=== PATIENT | female | born 1950 | race Caucasian/White ===

== ENCOUNTER 2017-01-11 06:02 | Day surgery (SDC) | payer MEDICARE, BC ==
[2016-12-28 11:41] LABS: HEMATOCRIT 41.4 % (36.0-47.0); HEMOGLOBIN 14.1 g/dL (12.0-15.5); HGB HCT DIFFERENCE 0.9; MEAN CORPUSCULAR HEMOGLOBIN 29.3 pg (27.0-33.4); MEAN CORPUSCULAR HGB CONC 34.1 g/dL (32.0-36.0); MEAN CORPUSCULAR VOLUME 86 fl (80-97); RED BLOOD COUNT 4.83 10^6/uL (3.72-5.28); RED CELL DISTRIBUTION WIDTH 13.6 % (11.5-14.0); WHITE BLOOD COUNT 7.5 10^3/uL (4.0-10.5)
[2016-12-28 11:43] LABS: PARTIAL THROMBOPLASTIN TIME 24.9 SEC (23.5-35.8)
[2016-12-28 11:57] LABS: ANION GAP 13 (5-19); BLOOD UREA NITROGEN 17 mg/dL (7-20); CALCIUM 9.7 mg/dL (8.4-10.2); CARBON DIOXIDE 28 mmol/L (22-30); CHLORIDE 101 mmol/L (98-107); CREATININE RESULT 0.64 mg/dL (0.52-1.25); GLUCOSE 100 mg/dL (75-110); POTASSIUM 3.9 mmol/L (3.6-5.0); SODIUM 141.7 mmol/L (137-145)
--- NOTE | 2016-12-28 13:26 | EKG REPORT ---
SEVERITY:- BORDERLINE ECG - SINUS RHYTHM ATRIAL PREMATURE COMPLEX BORDERLINE LEFT AXIS DEVIATION LOW VOLTAGE THROUGHOUT : Confirmed by: Carmelina Jesus MD 28-Dec-2016 13:25:26
[~2017-01-11 06:02] MED LIST: CEFAZOLIN 1 GM/D5W RTU 1 GM/50 ML RTUPB IV PRN; LACTATED RINGERS 1000 ML IV PRN; LIDOCAINE 0.5% INJ-PF (5 MG/ML) 50 ML SDV SUBCUT PRN
[2017-01-11] MEDS ORDERED: SODIUM BICARBONATE 8.4% INJ 50 MEQ/50 ML DISP.SYRIN ONE (06:54)
[2017-01-11] MEDS ORDERED: POVIDONE-IODINE 5% OPH PREP SOLN 30 ML ONE (06:54)
[2017-01-11] MEDS ORDERED: LIDOCAINE 1%/EPINEPHRINE INJ 20 ML VIAL ONE (06:54)
[2017-01-11] MEDS ORDERED: FENTANYL CITRATE INJ/PF 100 MCG/2 ML AMPUL ONE (07:24)
[2017-01-11] MEDS ORDERED: KETAMINE HCL INJ 500 MG/10 ML VIAL ONE (07:24)
[2017-01-11] MEDS ORDERED: DEXMEDETOMIDINE INJ 80 MCG/20 ML VIAL IV ONE (07:25)
[2017-01-11] MEDS ORDERED: PROPOFOL INJ 200 MG/20 ML VIAL IV ONE ×2 (07:25→07:26)
[2017-01-11] MEDS ORDERED: MIDAZOLAM 2 MG/2 ML INJ ONE (07:25)
[2017-01-11] MEDS ORDERED: ACETAMINOPHEN 100 ML IV ONE (07:25)
[2017-01-11] MEDS ORDERED: EPHEDRINE SULFATE INJ 50 MG/1 ML AMPULE ONE (07:25)
[2017-01-11] MEDS ORDERED: ONDANSETRON HCL INJ/PF 4 MG/2 ML SDV IV PRN (09:05)
[2017-01-11] MEDS ORDERED: FENTANYL CITRATE INJ/PF 100 MCG/2 ML AMPUL IV PRN ×3 (09:05)
[2017-01-11] MEDS ORDERED: PROMETHAZINE HCL INJ 25 MG/1 ML VIAL IV PRN ×2 (09:05)
[2017-01-11] MEDS ORDERED: MEPERIDINE HCL/PF INJ 25 MG/1 ML DISP.SYRIN IV PRN (09:05)
[2017-01-11] MEDS ORDERED: MORPHINE SULFATE 10 MG/ML INJ IV PRN (09:05)
[2017-01-11] MEDS ORDERED: DIPHENHYDRAMINE HCL 50 MG/ML VIAL IV PRN (09:05)
--- NOTE | 2017-01-11 10:15 | Operative Report ---
Operative Report DATE OF SURGERY: 01/11/17 PREOPERATIVE DIAGNOSIS: Basal squamous carcinoma of the right ear POSTOPERATIVE DIAGNOSIS: Same OPERATION: Excision of basal squamous carcinoma of the right ear with frozen section margin control and reconstruction with a posterior helical rim sliding advancement flap and a split thickness skin graft from the right clavicular area SURGEON: NICHOLAS ALDANA ANESTHESIA: LMAC TISSUE REMOVED OR ALTERED: Basal squamous carcinoma of the right ear COMPLICATIONS: None ESTIMATED BLOOD LOSS: minimal PROCEDURE: The patient was brought into the operating room. The patient was laid on the operating room table in a supine position. The patient was prepped and draped in a sterile and aseptic fashion. After a timeout we then went ahead and marked the area on the right ear to be resected. The 12:00 margin was towards the tragus. The 3:00 margin was towards the earlobe. The 6:00 margin was towards the posterior. The 9:00 margin was towards the apex of the year. Then went ahead and anesthetize the area with 1% lidocaine with epinephrine. Then went ahead and excise the area. Stitch was placed at 12:00 and it was sent for frozen section. Frozen section results came back that the deep and lateral margins were clear. We irrigated the wound with Betadine sterile water to lyse any remaining cancer cells. We then went ahead and decided that because of the size of the defect we will proceed with a skin graft. After the resection a portion of cartilage on the helical rim was exposed. This would not accept a graft. Also the graft would not be able to make the curve of the helical rim. In order to cover the exposed cartilage we developed a post auricular sliding advancement flap. I maintained the subdermal plexus and slid and advanced the flap around the helical rim and anchored it to the base of the inner helical rim with 5.0 horizontal mattress Prolene sutures. This fall with the flap and re-created coverage over the exposed helical rim cartilage and left the area to be grafted at the base of the scaphe We then proceeded to reconstruct the defect remaining on the upper part of the ear with a split-thickness skin graft. Decided to harvest the graft from the right clavicular area. We then went ahead and harvest the split-thickness graft. We closed the area with 4-0 Vicryl sutures and the skin was then closed with 4- 0 PDS with knots being tied on the outside and a support stitch in the center. At the end of the case tincture of benzoin and Steri-Strips were applied with a light pressure dressing. Graft was then defatted to the appropriate size and placed into the area of defect. It was then sutured into place with 5-0 Prolene sutures leaving one end long. After all the sutures were placed we then went ahead and applied Xeroform. Then went ahead and created a bolus dressing and tied each suture 180 from each other. Then tied the sutures again to each other. Bacitracin was applied. 2 x 2's were applied and tincture benzoin and the dressing was taped into place. At the end of the case the patient was doing well and brought to the [facility] for recovery The approximate size of the lesion was approximately 1.1 x 1.1 cm. This dictation was performed using [employer] naturally speaking. If there are any inconsistencies please contact the dictating surgeon. Subjective: No complaints Objective: Vital signs stable afebrile No bleeding Dressing intact Assessment and plan: Doing well. Elevate the operative site. Resume medications. Take antibiotics for 1 day Follow-up Full instructions were given to the patient and family and they understand Portions of this note may be dictated using [employer] voice recognition software. Occasional variations and spelling and vocabulary could be possible and are unintentional. Additionally, there is a chance that some errors may not be caught or corrected. Please notify the offer of any discrepancies noted or if any statements are unclear.
--- NOTE | 2017-01-11 10:18 | PDOC DISCHARGE SUMMARY ---
Discharge Summary (SDC) - Discharge Final Diagnosis: Basal squamous carcinoma of the right ear Date of Surgery: 01/11/17 Condition: Good Treatment or Instructions: Antibiotics for 1 day, then discontinue. Elevate operative area to decrease swelling. Do not strain, or lift heavy objects. Call for excessive bleeding, increased temperature of 101, uncontrolled pain, or excessive nausea or vomiting. You may reach Dr. Wong through his office at [phone]. In the event of an emergency after hours, then contact Dr. Wong through [facility]. Return to the office for a postop check on . The time will be scheduled by the nursing staff of [facility] prior to discharge. Please give the patient a copy of their labs and EKG so they can bring this to their PMD. Thank you Portions of this note may be dictated using [employer] voice recognition software. Occasional variations and spelling and vocabulary could be possible and are unintentional. Additionally, there is a chance that some errors may not be caught or corrected. Please notify the offer of any discrepancies noted or if any statements are unclear. Discharge Diet: As Tolerated Discharge Activity: Activity As Tolerated - Discharged to home
[2017-01-11 11:55] VITALS: BP 104/65
[2017-01-11] MEDS ORDERED: METOCLOPRAMIDE HCL INJ/PF 10 MG/2 ML SDV ONE (14:52)
[2017-01-11] MEDS ORDERED: PHENYLEPHRINE HCL INJ/PF 10 MG/1 ML SDV ONE (14:52)
[2017-01-11] MEDS ORDERED: LIDOCAINE 2% INJ-PF (20 MG/ML) 10 ML AMPUL ONE (14:52)
[2017-01-11] MEDS ORDERED: ONDANSETRON HCL INJ/PF 4 MG/2 ML SDV ONE (14:52)
[2017-01-11] MEDS ORDERED: GLYCOPYRROLATE INJ 0.4 MG/2 ML VIAL ONE (14:52)
== END 2017-01-11 11:40 | disposition home or self-care (01) ==
LOC: OROUT 06:02
PROVIDERS: ATTEND Plastic Surgery
PROC: 0HR2X74 Replacement of Right Ear Skin with Autologous Tissue Substitute, Partial Thickness, External Approach (ICD-10-PCS; principal; 2017-01-11 08:00)
DX: C44.212 Basal cell carcinoma of skin of right ear and external auricular canal (principal); C44.222 Squamous cell carcinoma of skin of right ear and external auricular canal; I10 Essential (primary) hypertension; K21.9 Gastro-esophageal reflux disease without esophagitis; E11.9 Type 2 diabetes mellitus without complications; Z79.01 Long term (current) use of anticoagulants; Z88.5 Allergy status to narcotic agent; Z79.82 Long term (current) use of aspirin; Z79.899 Other long term (current) drug therapy; Z79.1 Long term (current) use of non-steroidal anti-inflammatories (NSAID); Z79.84 Long term (current) use of oral hypoglycemic drugs
CPT/HCPCS: 93005; 36415 ×2; 82962; 84132; 85027; 85610; 85730; 80048; 88305 ×2; 88331 ×2; 93010; 11642; 15120; J2250; J0690; J3010; J3490 ×6; J2765; J2370; J2405; J2704; J0131; 300

== ENCOUNTER 2017-05-29 22:28 | Emergency (ER) | payer MEDICARE, BC ==
[2017-05-30] MEDS ORDERED: NORMAL SALINE 1000 ML 1,000 ML IV PRN (00:22)
[2017-05-30] MEDS ORDERED: DIPHENHYDRAMINE HCL 50 MG/ML VIAL IV ONE (00:22)
[2017-05-30] MEDS ORDERED: METOCLOPRAMIDE HCL INJ/PF 10 MG/2 ML SDV IV ONE (00:22)
--- NOTE | 2017-05-30 00:23 | ER Document Report ---
ED Headache - General Chief Complaint: Headache <24 hrs old Stated Complaint: BODY PAIN Time Seen by Provider: 05/30/17 00:17 Mode of Arrival: Ambulatory Information source: Patient TRAVEL OUTSIDE OF THE [place] IN LAST 30 DAYS: No - HPI Patient complains to provider of: Headache Onset: This evening Onset was: Abrupt Timing: Still present Quality of pain: Achy Severity: Moderate Pain Level: 4 Associated symptoms: Nausea/vomiting Exacerbated by: Light, Noise Notes: Patient is a 66-year-old female presenting to the emergency room today complaining of headache that started around 830 this evening, started behind the right eye and radiates to the ear in the back of the head, she reports a history of migraines as a child but she states she grew out of them and has not had any symptoms, she reports nausea and dry heaving vomiting, denies a fever, no head injury, she reports an elevated blood pressure at home which is not typical for her - Related Data Allergies/Adverse Reactions: adhesive Allergy (Intermediate, Verified 05/29/17 22:57) Blisters latex [Latex] Allergy (Mild, Verified 05/29/17 22:57) rash acetaminophen [From Vicodin] Adverse Reaction (Intermediate, Verified 05/29/17 22:57) Hallucinations hydrocodone bitartrate [From Vicodin] Adverse Reaction (Intermediate, Verified 05/29/17 22:57) Hallucinations oxycodone HCl [From Percocet] Adverse Reaction (Intermediate, Verified 05/29/17 22:57) Hallucinations Past Medical History - General Information source: Patient - Social History Smoking Status: Never Smoker Family History: Reviewed & Not Pertinent Patient has suicidal ideation: No Patient has homicidal ideation: No - Past Medical History Cardiac Medical History: Denies: Hx Coronary Artery Disease, Hx Heart Attack, Hx Hypertension Pulmonary Medical History: Denies: Hx Asthma, Hx Bronchitis, Hx COPD, Hx Pneumonia Neurological Medical History: Denies: Hx Cerebrovascular Accident, Hx Seizures Renal/ Medical History: Reports: Hx Kidney Stones. Denies: Hx Peritoneal Dialysis Malignancy Medical History: Reports: Hx Skin Cancer Musculoskeltal Medical History: Denies Hx Arthritis Past Surgical History: Reports: Hx Appendectomy, Hx Cholecystectomy, Hx Tonsillectomy. Denies: Hx Pacemaker - Immunizations Hx Diphtheria, Pertussis, Tetanus Vaccination: Yes Hx Pneumococcal Vaccination: 09/12/07 Review of Systems - Review of Systems Constitutional: No symptoms reported EENT: No symptoms reported Cardiovascular: No symptoms reported Respiratory: No symptoms reported Gastrointestinal: Nausea, Vomiting Genitourinary: No symptoms reported Female Genitourinary: No symptoms reported Musculoskeletal: No symptoms reported Skin: No symptoms reported Hematologic/Lymphatic: No symptoms reported Neurological/Psychological: Headaches -: Yes All other systems reviewed and negative Physical Exam - Vital signs Vitals: Pulse Resp Pulse Ox 78 12 98 05/30/17 02:21 05/30/17 02:21 05/30/17 02:21 Interpretation: Normal - General General appearance: Appears well, Alert - HEENT Head: Normocephalic, Atraumatic Eyes: Normal Pupils: PERRL - Respiratory Respiratory status: No respiratory distress Chest status: Nontender Breath sounds: Normal Chest palpation: Normal - Cardiovascular Rhythm: Regular Heart sounds: Normal auscultation Murmur: No - Abdominal Inspection: Normal Distension: No distension Bowel sounds: Normal Tenderness: Nontender Organomegaly: No organomegaly - Back Back: Normal, Nontender - Extremities General upper extremity: Normal inspection, Nontender, Normal color, Normal ROM , Normal temperature General lower extremity: Normal inspection, Nontender, Normal color, Normal ROM , Normal temperature, Normal weight bearing. No: Sylvia's sign - Neurological Neuro grossly intact: Yes Cognition: Normal Orientation: AAOx4 [place] Coma Scale Eye Opening: Spontaneous Charline Coma Scale Verbal: Oriented [place] Coma Scale Motor: Obeys Commands [place] Coma Scale Total: 15 Speech: Normal Motor strength normal: LUE, RUE, LLE, RLE Sensory: Normal - Psychological Associated symptoms: Normal affect, Normal mood - Skin Skin Temperature: Warm Skin Moisture: Dry Skin Color: Normal Course - Re-evaluation Re-evalutation: 05/30/17 01:56 Patient resting comfortably on stretcher, reports feeling much better and ready to go home, imaging findings were discussed with patient at bedside which show nothing acute but a possible old lacunar infarct, patient was discharged with instructions for follow-up and advised to return if any additional concerns, patient acknowledges understanding and agreement with this plan 05/30/17 05:28 - Vital Signs Vital signs: Temp Pulse Resp BP Pulse Ox 78 12 98 05/30/17 02:21 05/30/17 02:21 05/30/17 02:21 - Diagnostic Test Radiology reviewed: Image reviewed, Reports reviewed Discharge - Discharge Clinical Impression: Headache Qualifiers: Headache type: unspecified Headache chronicity pattern: acute headache Intractability: not intractable Qualified Code(s): R51 - Headache Condition: Stable Disposition: HOME, SELF-CARE Instructions: Headache ([facility]) Additional Instructions: Follow up with your primary care provider in one to 2 days. Return to the emergency room immediately if symptoms worsen or any additional concerns. Referrals: NICHOLAS ALDANA MD [Primary Care Provider] - Follow up as needed
--- NOTE | 2017-05-30 00:53 | RADIOLOGY REPORT (SQ) ---
EXAM DESCRIPTION: CT HEAD WITHOUT COMPLETED DATE/TIME: 05/30/2017 12:40 am REASON FOR STUDY: injury COMPARISON: None. TECHNIQUE: Axial images acquired through the brain without intravenous contrast. Images reviewed wi th bone, brain and subdural windows. Images stored on PACS. All CT scanners at this facility use dose modulation, iterative reconstruction, and/or weight based d osing when appropriate to reduce radiation dose to as low as reasonably achievable (ALARA). [facility]: Dose Right [facility]: CareDose [facility]: Dose Right [facility]: Teradose 4D [facility]: Flipswap RADIATION DOSE: Up-to-date CT equipment and radiation dose reduction techniques were employed. CTDIv ol: 64.6 mGy. DLP: 1163 mGy-cm. mGy. LIMITATIONS: None. FINDINGS: VENTRICLES: Normal size and contour. CEREBRUM: No masses. No hemorrhage. No midline shift. No evidence for acute infarction. Normal gra y/white matter differentiation. No areas of low density in the white matter. Lacunar infarct of the right thalamus. CEREBELLUM: No masses. No hemorrhage. No alteration of density. No evidence for acute infarction. EXTRAAXIAL SPACES: No fluid collections. No masses. Atherosclerosis. ORBITS AND GLOBE: No intra- or extraconal masses. Normal contour of globe without masses. CALVARIUM: No fracture. PARANASAL SINUSES: No fluid or mucosal thickening. SOFT TISSUES: No mass or hematoma. OTHER: No other significant finding. IMPRESSION: No acute findings. Lacunar infarct of the right thalamus. COMMENT: Quality ID # [id number]: Final reports with documentation of one or more dose reduction techniques (e.g., Automated exposure control, adjustment of the mA and/or kV according to patient size, use of iterative reconstruction technique) TECHNICAL DOCUMENTATION: JOB ID: [id number] [employer]- All Rights Reserved
[2017-05-30] MEDS ORDERED: ONDANSETRON 4 MG TAB.RAPDIS SL ONE (01:56)
== END 2017-05-30 02:22 | disposition home or self-care (01) ==
LOC: ER 22:28
DX: R51 Headache (principal); M79.1 Myalgia; R11.2 Nausea with vomiting, unspecified
CPT/HCPCS: 99283; 96361; 96374; 96375; 70450; J1200; A9270; J2765; J7030; S0119

== ENCOUNTER 2017-09-02 11:17 | Emergency (ER) | payer MEDICARE, BC ==
[2017-09-02] MEDS ORDERED: IPRATROPIUM/ALBUTEROL 0.5-2.5 MG/3 ML AMPUL NEB ONE (12:19)
--- NOTE | 2017-09-02 12:19 | ER Document Report ---
HPI - HPI Pain Level: 4 - REPRODUCTIVE Reproductive: DENIES: : Past Medical History - Social History Smoking Status: Current Some Day Smoker Family History: Reviewed & Not Pertinent Patient has suicidal ideation: No Patient has homicidal ideation: No - Past Medical History Cardiac Medical History: Denies: Hx Coronary Artery Disease, Hx Heart Attack, Hx Hypertension Pulmonary Medical History: Denies: Hx Asthma, Hx Bronchitis, Hx COPD, Hx Pneumonia Neurological Medical History: Denies: Hx Cerebrovascular Accident, Hx Seizures Renal/ Medical History: Reports: Hx Kidney Stones. Denies: Hx Peritoneal Dialysis Malignancy Medical History: Reports: Hx Skin Cancer Musculoskeltal Medical History: Denies Hx Arthritis Past Surgical History: Reports: Hx Appendectomy, Hx Cholecystectomy, Hx Tonsillectomy. Denies: Hx Pacemaker - Immunizations Hx Diphtheria, Pertussis, Tetanus Vaccination: Yes Hx Pneumococcal Vaccination: 09/12/07 Vertical Provider Document - INFECTION CONTROL TRAVEL OUTSIDE OF THE [place] IN LAST 30 DAYS: No - RESPIRATORY O2 Sat by Pulse Oximetry: 94 Course - Re-evaluation Re-evalutation: 09/02/17 13:32 Chest x-ray is negative nurses had trouble getting the blood the lab has been called IV is infusing 09/02/17 13:41 Patient feels better she walked to the bathroom for urinalysis her headache is down to 2/5 from 3/5. I will order more medication for the headache. 1 L of IV fluid has been infused and she is asking for a popsicle. 09/02/17 14:57 still has exp wheeze, mild, will give another tx, prednisone. potassium 40m3q, d /c home-pt understand instructions. - Vital Signs Vital signs: Temp Pulse Resp BP Pulse Ox 98.0 F 55 L 18 125/59 L 94 09/02/17 11:22 09/02/17 11:22 09/02/17 11:22 09/02/17 11:22 09/02/17 11:22 - Laboratory Result Diagrams: 09/02/17 13:47 09/02/17 13:47 Discharge - Discharge Clinical Impression: bronchitis, Hypokalemia Headache Qualifiers: Headache type: unspecified Headache chronicity pattern: unspecified pattern Intractability: not intractable Qualified Code(s): R51 - Headache Condition: Good Disposition: HOME, SELF-CARE Instructions: Headache ([facility]), Hypokalemia ([facility]), Bronchitis With Bronchospasm ( Wheezing) ([facility]) Additional Instructions: plenty of fluids to er if worse see your doctor at [facility] in [place] for follow up use the nebulizer every 4 hours as needed while sick quit smoking steroid for 5 days total eat bannana per day Prescriptions: Albuterol Sulfate [Ventolin 0.083% Neb 2.5 mg/3 mL Ampul] 2.5 mg NEB Q3HP PRN # 25 vial PRN Reason: Prednisone [Deltasone 20 mg Tablet] 40 mg PO DAILY #8 tablet
[2017-09-02] MEDS ORDERED: ACETAMINOPHEN 325 MG TABLET PO ONE (12:20)
[2017-09-02] MEDS ORDERED: NORMAL SALINE 1000 ML 1,000 ML IV ONE (12:20)
[2017-09-02] MEDS ORDERED: KETOROLAC TROMETHAMINE INJ/PF 30 MG/1 ML SDV IV ONE (12:21)
--- NOTE | 2017-09-02 12:57 | RADIOLOGY REPORT (SQ) ---
EXAM DESCRIPTION: CHEST PA/LAT COMPLETED DATE/TIME: 09/02/2017 12:41 pm REASON FOR STUDY: cough, bodayaches COMPARISON: 01/06/2016 EXAM PARAMETERS: NUMBER OF VIEWS: two views TECHNIQUE: Digital Frontal and Lateral radiographic views of the chest acquired. RADIATION DOSE: NA LIMITATIONS: none FINDINGS: LUNGS AND PLEURA: No opacities, masses or pneumothorax. No pleural effusion. MEDIASTINUM AND HILAR STRUCTURES: No masses or contour abnormalities. HEART AND VASCULAR STRUCTURES: Heart normal size. No evidence for failure. BONES: No acute findings. HARDWARE: Right upper quadrant clips post cholecystectomy. OTHER: No other significant finding. IMPRESSION: NO SIGNIFICANT RADIOGRAPHIC FINDING IN THE CHEST. TECHNICAL DOCUMENTATION: JOB ID: [id number] [employer]- All Rights Reserved
[2017-09-02] MEDS ORDERED: PROCHLORPERAZINE EDISYLATE INJ 10 MG/2 ML VIAL IV ONE (13:41)
[2017-09-02] MEDS ORDERED: DIPHENHYDRAMINE HCL 50 MG/ML VIAL IV ONE (13:41)
[2017-09-02 14:09] LABS: ABSOLUTE LYMPHOCYTES (AUTO) 2.2 10^3/uL (0.5-4.7); ABSOLUTE MONOCYTES (AUTO) 0.4 10^3/uL (0.1-1.4); ABSOLUTE NEUT (AUTO) 2.7 10^3/uL (1.7-8.2); BASOPHILS % (AUTO) 0.2 % (0-2); EOSINOPHILS % (AUTO) 0.7 % (0-6); HEMATOCRIT 40.5 % (36.0-47.0); HEMOGLOBIN 13.8 g/dL (12.0-15.5); HGB HCT DIFFERENCE 0.9; LYMPHOCYTES % (AUTO) 40.8 % (13-45); MEAN CORPUSCULAR VOLUME 85 fl (80-97); MONOCYTES % (AUTO) 7.9 % (3-13); RED BLOOD COUNT 4.75 10^6/uL (3.72-5.28); RED CELL DISTRIBUTION WIDTH 13.8 % (11.5-14.0); SEGMENTED NEUTROPHILS % (AUTO) 50.4 % (42-78); WHITE BLOOD COUNT 5.4 10^3/uL (4.0-10.5)
[2017-09-02 14:32] LABS: APPEARANCE,URINE SLIGHTLY-CLOUDY; BILIRUBIN,URINE NEGATIVE (NEGATIVE); GLUCOSE, URINE NEGATIVE (NEGATIVE); KETONES,URINE NEGATIVE (NEGATIVE); LEUKOCYTE ESTERASE,URINE NEGATIVE (NEGATIVE); NITRITE,URINE NEGATIVE (NEGATIVE); PROTEIN,URINE NEGATIVE (NEGATIVE); URINE SPECIFIC GRAVITY 1.015; UROBILINOGEN,URINE NEGATIVE mg/dL (<2.0)
[2017-09-02 14:43] LABS: ALANINE AMINOTRANSFERASE 61 U/L (9-52); ALBUMIN 3.6 g/dL (3.5-5.0); ALKALINE PHOSPHATASE 98 U/L (38-126); ANION GAP 11 (5-19); ASPARTATE AMINO TRANSFERASE 34 U/L (14-36); BILIRUBIN,DIRECT 0.2 mg/dL (0.0-0.4); BILIRUBIN,TOTAL 0.4 mg/dL (0.2-1.3); BLOOD UREA NITROGEN 12 mg/dL (7-20); CARBON DIOXIDE 29 mmol/L (22-30); CHLORIDE 103 mmol/L (98-107); CREATININE RESULT 0.73 mg/dL (0.52-1.25); GLUCOSE 82 mg/dL (75-110); POTASSIUM 3.1 mmol/L (3.6-5.0); SODIUM 143.3 mmol/L (137-145); TOTAL PROTEIN 5.8 g/dL (6.3-8.2)
[2017-09-02] MEDS ORDERED: POTASSIUM CHLORIDE 20 MEQ/15 ML UDCUP PO ONE (14:45)
[2017-09-02] MEDS ORDERED: PREDNISONE 20 MG TABLET PO ONE (14:55)
[2017-09-02] MEDS ORDERED: ALBUTEROL SULFATE 0.083% NEB 2.5 MG/3 ML AMPUL NEB ONE (14:55)
[2017-09-02 15:51] VITALS: BP 132/78
[2017-09-02] MEDS ORDERED: ONDANSETRON 4 MG TAB.RAPDIS PO ONE (16:05)
== END 2017-09-02 16:25 | disposition home or self-care (01) ==
LOC: ER 11:17
DX: J40 Bronchitis, not specified as acute or chronic (principal); R51 Headache; E87.6 Hypokalemia; R06.2 Wheezing; F17.200 Nicotine dependence, unspecified, uncomplicated
CPT/HCPCS: 94640 ×2; 99284; 96361; 96374; 96375; 36415; 82962; 85025; 80053; 81001; 71020; J1200; A9270 ×5; J1885; J0780; J7030; J7512; J7620; S0119

== ENCOUNTER 2017-11-24 15:03 | Inpatient (IN) | payer MEDICARE, BC ==
[2017-11-24] MEDS ORDERED: NORMAL SALINE 1000 ML 1,000 ML IV ONE ×2 (15:16)
[2017-11-24 15:40] LABS: ABSOLUTE BASOPHILS # (AUTO) 0.1 10^3/uL (0.0-0.2); ABSOLUTE EOSINOPHILS # (AUTO) 0.1 10^3/uL (0.0-0.6); ABSOLUTE LYMPHOCYTES (AUTO) 2.7 10^3/uL (0.5-4.7); ABSOLUTE MONOCYTES (AUTO) 0.5 10^3/uL (0.1-1.4); ABSOLUTE NEUT (AUTO) 4.5 10^3/uL (1.7-8.2); BASOPHILS % (AUTO) 0.7 % (0-2); EOSINOPHILS % (AUTO) 1.5 % (0-6); HEMATOCRIT 45.9 % (36.0-47.0); HEMOGLOBIN 15.5 g/dL (12.0-15.5); LYMPHOCYTES % (AUTO) 34.7 % (13-45); MEAN CORPUSCULAR HEMOGLOBIN 29.7 pg (27.0-33.4); MEAN CORPUSCULAR HGB CONC 33.7 g/dL (32.0-36.0); MEAN CORPUSCULAR VOLUME 88 fl (80-97); MONOCYTES % (AUTO) 5.8 % (3-13); PLATELET COUNT 303 10^3/uL (150-450); RED BLOOD COUNT 5.22 10^6/uL (3.72-5.28); RED CELL DISTRIBUTION WIDTH 14.8 % (11.5-14.0); SEGMENTED NEUTROPHILS % (AUTO) 57.3 % (42-78); TOTAL CELLS COUNTED % (AUTO) 100 %; WHITE BLOOD COUNT 7.9 10^3/uL (4.0-10.5)
--- NOTE | 2017-11-24 15:40 | RADIOLOGY REPORT (SQ) ---
EXAM DESCRIPTION: CHEST SINGLE VIEW COMPLETED DATE/TIME: 11/24/2017 3:30 pm REASON FOR STUDY: ams COMPARISON: 09/02/2017. EXAM PARAMETERS: NUMBER OF VIEWS: One view. TECHNIQUE: Single frontal radiographic view of the chest acquired. RADIATION DOSE: NA LIMITATIONS: None. FINDINGS: LUNGS AND PLEURA: No opacities, masses or pneumothorax. No pleural effusion. MEDIASTINUM AND HILAR STRUCTURES: No masses. Contour normal. HEART AND VASCULAR STRUCTURES: Heart normal in size. Normal vasculature. BONES: No acute findings. HARDWARE: None in the chest. OTHER: No other significant finding. IMPRESSION: NO ACUTE RADIOGRAPHIC FINDING IN THE CHEST. TECHNICAL DOCUMENTATION: JOB ID: [id number] [employer]- All Rights Reserved Reading location - IP/workstation name: [email or web address]
[2017-11-24 15:50] LABS: PROTHROMBIN TIME 12.1 SEC (11.4-15.4)
--- NOTE | 2017-11-24 15:50 | RADIOLOGY REPORT (SQ) ---
EXAM DESCRIPTION: CT HEAD WITHOUT COMPLETED DATE/TIME: 11/24/2017 3:41 pm REASON FOR STUDY: ams COMPARISON: 05/30/2017. TECHNIQUE: Axial images acquired through the brain without intravenous contrast. Images reviewed wi th bone, brain and subdural windows. Images stored on PACS. All CT scanners at this facility use dose modulation, iterative reconstruction, and/or weight based d osing when appropriate to reduce radiation dose to as low as reasonably achievable (ALARA). [facility]: Dose Right [facility]: CareDose [facility]: Dose Right [facility]: Teradose 4D [facility]: LitRes RADIATION DOSE: CT Rad equipment meets quality standard of care and radiation dose reduction techniq ues were employed. CTDIvol: 64.6 mGy. DLP: 1163 mGy-cm. mGy. LIMITATIONS: None. FINDINGS: VENTRICLES: Normal size and contour. CEREBRUM: No masses. No hemorrhage. No midline shift. No evidence for acute infarction. Normal gra y/white matter differentiation. No areas of low density in the white matter. CEREBELLUM: No masses. No hemorrhage. No alteration of density. No evidence for acute infarction. EXTRAAXIAL SPACES: No fluid collections. No masses. ORBITS AND GLOBE: No intra- or extraconal masses. Normal contour of globe without masses. CALVARIUM: No fracture. PARANASAL SINUSES: No fluid or mucosal thickening. SOFT TISSUES: No mass or hematoma. OTHER: No other significant finding. IMPRESSION: NORMAL BRAIN CT WITHOUT CONTRAST. EVIDENCE OF ACUTE STROKE: NO. COMMENT: Quality ID # [id number]: Final reports with documentation of one or more dose reduction techniques (e.g., Automated exposure control, adjustment of the mA and/or kV according to patient size, use of iterative reconstruction technique) TECHNICAL DOCUMENTATION: JOB ID: [id number] [employer]- All Rights Reserved Reading location - IP/workstation name: [email or web address]
[2017-11-24 15:51] LABS: INTERNATIONAL RATION (INR) 0.84
[2017-11-24 15:59] LABS: ALANINE AMINOTRANSFERASE 36 U/L (9-52); ALBUMIN 4.6 g/dL (3.5-5.0); ALKALINE PHOSPHATASE 96 U/L (38-126); ANION GAP 12 (5-19); ASPARTATE AMINO TRANSFERASE 24 U/L (14-36); BILIRUBIN,DIRECT 0.5 mg/dL (0.0-0.4); BILIRUBIN,TOTAL 0.5 mg/dL (0.2-1.3); BLOOD UREA NITROGEN 19 mg/dL (7-20); CALCIUM 10.1 mg/dL (8.4-10.2); CARBON DIOXIDE 28 mmol/L (22-30); CHLORIDE 100 mmol/L (98-107); CREATINE KINASE 80 U/L (30-135); GLUCOSE 95 mg/dL (75-110); POTASSIUM 3.1 mmol/L (3.6-5.0); SALICYLATE 6.2 mg/dL (2.0-20.0); SODIUM 139.6 mmol/L (137-145); TOTAL PROTEIN 7.9 g/dL (6.3-8.2)
[2017-11-24 16:00] LABS: ACETAMINOPHEN < 10 ug/mL (10-30)
[2017-11-24] MEDS ORDERED: POTASSIUM CHLORIDE 20 MEQ/15 ML UDCUP PO ONE (16:05)
[2017-11-24 16:19] LABS: VENOUS BLOOD BASE EXCESS 3.3 mmol/L; VENOUS BLOOD HCO3 28.4 mmol/L (20-32); VENOUS BLOOD PCO2 44.9 mmHg (35-63); VENOUS BLOOD PH 7.42 (7.30-7.42)
[2017-11-24 16:31] LABS: APPEARANCE,URINE CLEAR; BILIRUBIN,URINE NEGATIVE (NEGATIVE); COLOR,URINE YELLOW; GLUCOSE, URINE NEGATIVE (NEGATIVE); KETONES,URINE NEGATIVE (NEGATIVE); LEUKOCYTE ESTERASE,URINE NEGATIVE (NEGATIVE); NITRITE,URINE NEGATIVE (NEGATIVE); PROTEIN,URINE NEGATIVE (NEGATIVE); URINE SPECIFIC GRAVITY 1.027
[2017-11-24] MEDS ORDERED: ONDANSETRON HCL INJ/PF 4 MG/2 ML SDV IV ONE (17:02)
[2017-11-24 17:14] LABS: URINE AMPHETAMINES SCREEN NEGATIVE; URINE BARBITURATES SCREEN NEGATIVE; URINE BENZODIAZEPINES SCREEN NEGATIVE; URINE COCAINE SCREEN NEGATIVE; URINE MARIJUANA (THC) SCREEN NEGATIVE; URINE METHADONE SCREEN NEGATIVE; URINE PHENCYCLIDINE SCREEN NEGATIVE
--- NOTE | 2017-11-24 17:52 | ER Document Report ---
ED General - General Chief Complaint: Passed Out Prior to Arrival Stated Complaint: WEAKNESS Time Seen by Provider: 11/24/17 15:11 TRAVEL OUTSIDE OF THE [place] IN LAST 30 DAYS: No - HPI Patient complains to provider of: Syncope Notes: Patient coming in after syncopal episode. Patient according to EMS was leaving the bathroom when the states she fell to the ground. Patient was minimally responsive however did roll over and vomit. Upon EMS evaluation and evaluation here in the ER patient minimally responsive elderly is following commands sluggish to answer. Patient denies any pain patient is moving all 4 extremities. Otherwise patient denies any recent illnesses denies any nausea at this time. Past medical history is obtained from previous visits also medication list is also obtained from previous visits. - Related Data Allergies/Adverse Reactions: adhesive Allergy (Intermediate, Verified 09/02/17 11:18) Blisters latex [Latex] Allergy (Mild, Verified 09/02/17 11:18) rash acetaminophen [From Vicodin] Adverse Reaction (Intermediate, Verified 09/02/17 11:18) Hallucinations hydrocodone bitartrate [From Vicodin] Adverse Reaction (Intermediate, Verified 09/02/17 11:18) Hallucinations oxycodone HCl [From Percocet] Adverse Reaction (Intermediate, Verified 09/02/17 11:18) Hallucinations diazepam [From Valium] Adverse Reaction (Verified 09/02/17 12:09) Past Medical History - Social History Smoking Status: Never Smoker Chew tobacco use (# tins/day): No Frequency of alcohol use: None Drug Abuse: None Family History: Reviewed & Not Pertinent Patient has suicidal ideation: No Patient has homicidal ideation: No - Past Medical History Cardiac Medical History: Denies: Hx Coronary Artery Disease, Hx Heart Attack, Hx Hypertension Pulmonary Medical History: Denies: Hx Asthma, Hx Bronchitis, Hx COPD, Hx Pneumonia Neurological Medical History: Denies: Hx Cerebrovascular Accident, Hx Seizures Endocrine Medical History: Reports: Hx Diabetes Mellitus Type 2 Renal/ Medical History: Reports: Hx Kidney Stones. Denies: Hx Peritoneal Dialysis Malignancy Medical History: Reports: Hx Skin Cancer Musculoskeltal Medical History: Denies Hx Arthritis Past Surgical History: Reports: Hx Appendectomy, Hx Cholecystectomy, Hx Hysterectomy, Hx Orthopedic Surgery - "lower back", Hx Tonsillectomy. Denies: Hx Pacemaker - Immunizations Hx Diphtheria, Pertussis, Tetanus Vaccination: Yes Hx Pneumococcal Vaccination: 01/01/08 Review of Systems - Review of Systems Constitutional: No symptoms reported EENT: No symptoms reported Cardiovascular: Syncope Respiratory: No symptoms reported Gastrointestinal: No symptoms reported Genitourinary: No symptoms reported Female Genitourinary: No symptoms reported Musculoskeletal: No symptoms reported Skin: No symptoms reported Hematologic/Lymphatic: No symptoms reported Neurological/Psychological: No symptoms reported -: Yes All other systems reviewed and negative Physical Exam - Vital signs Vitals: Temp Resp Pulse Ox 97.3 F 14 94 11/24/17 15:18 11/24/17 15:18 11/24/17 15:18 Interpretation: Normal - General General appearance: Alert, Lethargic - HEENT Head: Normocephalic, Atraumatic Eyes: Normal Pupils: PERRL - Respiratory Respiratory status: No respiratory distress Chest status: Nontender Breath sounds: Normal Chest palpation: Normal - Cardiovascular Rhythm: Regular Heart sounds: Normal auscultation Murmur: No - Abdominal Inspection: Normal Distension: No distension Bowel sounds: Normal Tenderness: Nontender Organomegaly: No organomegaly - Back Back: Normal, Nontender - Extremities General upper extremity: Normal inspection, Nontender, Normal color, Normal ROM , Normal temperature General lower extremity: Normal inspection, Nontender, Normal color, Normal ROM , Normal temperature, Normal weight bearing. No: Sylvia's sign - Neurological Neuro grossly intact: Yes Cognition: Normal Orientation: AAOx4 [place]line Coma Scale Eye Opening: Spontaneous [place] Coma Scale Verbal: Oriented [place] Coma Scale Motor: Obeys Commands [place] Coma Scale Total: 15 Speech: Normal Motor strength normal: LUE, RUE, LLE, RLE Sensory: Normal - Psychological Associated symptoms: Normal affect, Normal mood - Skin Skin Temperature: Warm Skin Moisture: Dry Skin Color: Normal Course - Re-evaluation Re-evalutation: 11/24/17 19:00 Patient sleeping upon my last evaluation however easily arousable bradycardic with sleeping not bradycardic when awake. Patient now more alert and awake denies any chest pain hip pain abdominal pain prior to after currently. Orthostatics were slightly positive with heart rate [id number] when standing. Patient still feels not 100% or like herself. Laboratory studies only showed a hypokalemia with potassium of 3.1. Magnesium normal. Replaced orally. Because the patient's syncopal episode we will continue to monitor the patient and will admit for observation. Discussed with hospitalist agrees with assessment and plan. 11/24/17 19:01 - Vital Signs Vital signs: Temp Pulse Resp BP Pulse Ox 97.3 F 61 21 H 170/82 H 98 11/24/17 15:18 11/24/17 16:51 11/24/17 17:02 11/24/17 17:02 11/24/17 17:02 - Laboratory Result Diagrams: 11/24/17 14:45 11/24/17 14:45 Laboratory results interpreted by me: 11/24/17 11/24/17 11/24/17 14:45 14:45 16:09 RDW 14.8 H Potassium 3.1 L Direct Bilirubin 0.5 H Urine Blood SMALL H Urine Urobilinogen 2.0 H Urine Ascorbic Acid 20 H Acetaminophen < 10 L Discharge - Discharge Clinical Impression: Hypokalemia Syncope Qualifiers: Syncope type: unspecified Qualified Code(s): R55 - Syncope and collapse Condition: Good Disposition: ADMITTED OBSERVATION Admitting Provider: Hospitalist - [facility] Admitted: Telemetry
[2017-11-24] MEDS ORDERED: OXYCODONE-ACETAMINOPHEN 5-325 MG TABLET PO PRN (17:57)
[2017-11-24] MEDS ORDERED: IPRATROPIUM/ALBUTEROL 0.5-2.5 MG/3 ML AMPUL NEB PRN (17:57)
[2017-11-24] MEDS ORDERED: ACETAMINOPHEN 325 MG TABLET PO PRN (17:57)
[2017-11-24] MEDS ORDERED: ONDANSETRON HCL INJ/PF 4 MG/2 ML SDV IV PRN (18:07)
--- NOTE | 2017-11-24 18:42 | PDOC H&P ---
History of Present Illness Admission Date/PCP: 11/24/17 18:03 NICHOLAS ALDANA MD Patient complains of: Feeling dizzy and passing out when she got up to go to the bathroom History of Present Illness: BRAVO MOHAN is a 67 year old female who presented to the emergency room with complaints of passing out for a few seconds. This was accompanied by loss of bowel movement however she had been on the way to the bathroom to do just that. She said she felt a little woozy and knew this was coming on and apparently she was out for a few seconds. There was no preceding chest pain nausea although she did vomit after the event. She gives a prior history of such event about a year ago but said nothing was really found then and she has not had any other episode. She denies any chest pain palpitations or difficulty breathing. While I was in the room with I did notice have pulse to be low in the low 50s and she was irregular. There was no dizziness or any other pertinent symptoms at this time. She has not had a cough or fever or any history of cardiac disease or thyroid disease or any arrhythmias as far as she knows. 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 Past Medical History Cardiac Medical History: Denies: Coronary Artery Disease, Myocardial Infarction, Hypertension Pulmonary Medical History: Denies: Asthma, Bronchitis, Chronic Obstructive Pulmonary Disease (COPD), Pneumonia Neurological Medical History: Denies: Seizures Endocrine Medical History: Reports: Diabetes Mellitus Type 2 Malignancy Medical History: Reports: Skin Cancer Musculoskeltal Medical History: Denies: Arthritis Hematology: Reports: Anemia Past Surgical History Past Surgical History: Reports: Appendectomy, Cholecystectomy, Hysterectomy, Orthopedic Surgery - "lower back", Tonsillectomy Denies: Pacemaker Social History Smoking Status: Never Smoker Family History Family History: Reviewed & Not Pertinent Parental Family History Reviewed: Yes Children Family History Reviewed: Yes Sibling(s) Family History Reviewed.: Yes Medication/Allergy Allergies/Adverse Reactions: adhesive Allergy (Intermediate, Verified 09/02/17 11:18) Blisters latex [Latex] Allergy (Mild, Verified 09/02/17 11:18) rash acetaminophen [From Vicodin] Adverse Reaction (Intermediate, Verified 09/02/17 11:18) Hallucinations hydrocodone bitartrate [From Vicodin] Adverse Reaction (Intermediate, Verified 09/02/17 11:18) Hallucinations oxycodone HCl [From Percocet] Adverse Reaction (Intermediate, Verified 09/02/17 11:18) Hallucinations diazepam [From Valium] Adverse Reaction (Verified 09/02/17 12:09) Review of Systems Constitutional: ABSENT: fever(s), headache(s), weakness Eyes: ABSENT: visual disturbances Cardiovascular: ABSENT: edema Neurological: PRESENT: dizziness, syncope, weakness. ABSENT: abnormal gait, abnormal speech, convulsions, frequent falls, memory loss, numbness, paresthesias, tremor(s), vertigo Endocrine: PRESENT: as per HPI Hematologic/Lymphatic: PRESENT: as per HPI Physical Exam Vital Signs: Temp Pulse Resp BP Pulse Ox 97.3 F 61 21 H 170/82 H 98 11/24/17 15:18 11/24/17 16:51 11/24/17 17:02 11/24/17 17:02 11/24/17 17:02 General appearance: PRESENT: no acute distress, well-developed - Healthy looking Head exam: PRESENT: atraumatic Eye exam: PRESENT: conjunctiva pink, EOMI, PERRLA. ABSENT: scleral icterus Ear exam: PRESENT: normal external ear exam Neck exam: ABSENT: carotid bruit, JVD, lymphadenopathy, thyromegaly Respiratory exam: PRESENT: clear to auscultation jaswinder. ABSENT: rales, rhonchi, wheezes Cardiovascular exam: PRESENT: bradycardia, irregular rhythm, +S1, +S2 Pulses: PRESENT: normal dorsalis pedis pul GI/Abdominal exam: PRESENT: normal bowel sounds, soft. ABSENT: distended, guarding, mass, organolmegaly, rebound, tenderness Rectal exam: PRESENT: deferred Skin exam: PRESENT: dry, intact, warm. ABSENT: cyanosis, rash Results Laboratory Results: Laboratory 11/24/17 11/24/17 11/24/17 14:45 14:45 14:45 WBC 7.9 RBC 5.22 Hgb 15.5 Hct 45.9 MCV 88 MCH 29.7 MCHC 33.7 RDW 14.8 H Plt Count 303 Seg Neutrophils % 57.3 Lymphocytes % 34.7 Monocytes % 5.8 Eosinophils % 1.5 Basophils % 0.7 Absolute Neutrophils 4.5 Absolute Lymphocytes 2.7 Absolute Monocytes 0.5 Absolute Eosinophils 0.1 Absolute Basophils 0.1 PT 12.1 INR 0.84 VBG pH VBG pCO2 VBG HCO3 VBG Base Excess Sodium 139.6 Potassium 3.1 L Chloride 100 Carbon Dioxide 28 Anion Gap 12 BUN 19 Creatinine 0.92 Est GFR ( Amer) > 60 Est GFR (Non-Af Amer) > 60 Glucose 95 Lactic Acid Calcium 10.1 Magnesium 2.1 Total Bilirubin 0.5 Direct Bilirubin 0.5 H Neonat Total Bilirubin Not Reportable Neonat Direct Bilirubin Not Reportable Neonat Indirect Bili Not Reportable AST 24 ALT 36 Alkaline Phosphatase 96 Creatine Kinase 80 Troponin I Total Protein 7.9 Albumin 4.6 Urine Color Urine Appearance Urine pH Ur Specific [place] Urine Protein Urine Glucose (UA) Urine Ketones Urine Blood Urine Nitrite Urine Bilirubin Urine Urobilinogen Ur Leukocyte Esterase Urine WBC (Auto) Urine RBC (Auto) U Hyaline Cast (Auto) Urine Bacteria (Auto) Squamous Epi Cells Auto Urine Mucus (Auto) Urine Ascorbic Acid Salicylates 6.2 Urine Opiates Screen Urine Methadone Screen Acetaminophen < 10 L Ur Barbiturates Screen Ur Phencyclidine Scrn Ur Amphetamines Screen U Benzodiazepines Scrn Urine Cocaine Screen U Marijuana (THC) Screen Serum Alcohol 11/24/17 11/24/17 11/24/17 14:45 14:45 15:51 WBC RBC Hgb Hct MCV MCH MCHC RDW Plt Count Seg Neutrophils % Lymphocytes % Monocytes % Eosinophils % Basophils % Absolute Neutrophils Absolute Lymphocytes Absolute Monocytes Absolute Eosinophils Absolute Basophils PT INR VBG pH VBG pCO2 VBG HCO3 VBG Base Excess Sodium Potassium Chloride Carbon Dioxide Anion Gap BUN Creatinine Est GFR ( Amer) Est GFR (Non-Af Amer) Glucose Lactic Acid 1.4 Calcium Magnesium Total Bilirubin Direct Bilirubin Neonat Total Bilirubin Neonat Direct Bilirubin Neonat Indirect Bili AST ALT Alkaline Phosphatase Creatine Kinase Troponin I < 0.012 Total Protein Albumin Urine Color Urine Appearance Urine pH Ur Specific [place] Urine Protein Urine Glucose (UA) Urine Ketones Urine Blood Urine Nitrite Urine Bilirubin Urine Urobilinogen Ur Leukocyte Esterase Urine WBC (Auto) Urine RBC (Auto) U Hyaline Cast (Auto) Urine Bacteria (Auto) Squamous Epi Cells Auto Urine Mucus (Auto) Urine Ascorbic Acid Salicylates Urine Opiates Screen Urine Methadone Screen Acetaminophen Ur Barbiturates Screen Ur Phencyclidine Scrn Ur Amphetamines Screen U Benzodiazepines Scrn Urine Cocaine Screen U Marijuana (THC) Screen Serum Alcohol < 10 11/24/17 11/24/17 11/24/17 15:51 16:09 16:09 WBC RBC Hgb Hct MCV MCH MCHC RDW Plt Count Seg Neutrophils % Lymphocytes % Monocytes % Eosinophils % Basophils % Absolute Neutrophils Absolute Lymphocytes Absolute Monocytes Absolute Eosinophils Absolute Basophils PT INR VBG pH 7.42 VBG pCO2 44.9 VBG HCO3 28.4 VBG Base Excess 3.3 Sodium Potassium Chloride Carbon Dioxide Anion Gap BUN Creatinine Est GFR ( Amer) Est GFR (Non-Af Amer) Glucose Lactic Acid Calcium Magnesium Total Bilirubin Direct Bilirubin Neonat Total Bilirubin Neonat Direct Bilirubin Neonat Indirect Bili AST ALT Alkaline Phosphatase Creatine Kinase Troponin I Total Protein Albumin Urine Color YELLOW Urine Appearance CLEAR Urine pH 5.0 Ur Specific [place] 1.027 Urine Protein NEGATIVE Urine Glucose (UA) NEGATIVE Urine Ketones NEGATIVE Urine Blood SMALL H Urine Nitrite NEGATIVE Urine Bilirubin NEGATIVE Urine Urobilinogen 2.0 H Ur Leukocyte Esterase NEGATIVE Urine WBC (Auto) 4 Urine RBC (Auto) 29 U Hyaline Cast (Auto) 19 Urine Bacteria (Auto) TRACE Squamous Epi Cells Auto <1 Urine Mucus (Auto) FEW Urine Ascorbic Acid 20 H Salicylates Urine Opiates Screen NEGATIVE Urine Methadone Screen NEGATIVE Acetaminophen Ur Barbiturates Screen NEGATIVE Ur Phencyclidine Scrn NEGATIVE Ur Amphetamines Screen NEGATIVE U Benzodiazepines Scrn NEGATIVE Urine Cocaine Screen NEGATIVE U Marijuana (THC) Screen NEGATIVE Serum Alcohol Impressions: Chest X-Ray 11/24/17 15:11 IMPRESSION: NO ACUTE RADIOGRAPHIC FINDING IN THE CHEST. Head CT 11/24/17 15:18 IMPRESSION: NORMAL BRAIN CT WITHOUT CONTRAST. EVIDENCE OF ACUTE STROKE: NO. Assessment & Plan - Diagnosis (1) Bradycardia Is this a current diagnosis for this admission?: Yes Plan: Patient did have a period of bradycardia while that was in the room although she was asymptomatic. She denies any use of beta-blockers although I am still waiting for her home meds to be available at this time. She will be placed on telemetry monitoring we will obtain TSH as well as echocardiogram for further evaluation I was going to consult cardiology as the bradycardia and syncope she probably should be further evaluated (2) Hypokalemia Is this a current diagnosis for this admission?: Yes Plan: Unclear what the etiology is as patient denied that she was taking any diuretics. Will replace and recheck in a.m. as well as check magnesium (3) Syncope Qualifiers: Syncope type: unspecified Qualified Code(s): R55 - Syncope and collapse Is this a current diagnosis for this admission?: Yes Plan: Precise etiology is unclear. Head CT shows no acute findings. Carotid Doppler studies to be done as well as echocardiogram and cardiac enzymes will be obtained. He will be monitored on telemetry floor and further interventions will depend on her ultimately hospital course - Time Time Spent: 30 to 50 Minutes Critical Time spent with patient: Less than 15 minutes Medications reviewed and adjusted accordingly: Yes Anticipated discharge: Home Within: within 48 hours - Inpatient Certification Based on my medical assessment, after consideration of the patient's comorbidities, presenting symptoms, or acuity I expect that the services needed warrant INPATIENT care.: No - Plan Summary Plan Summary: Patient observation status
[2017-11-24] MEDS ORDERED: ENOXAPARIN SODIUM INJ 40 MG/0.4 ML DISP.SYRIN SUBCUT ONE (19:00)
--- NOTE | 2017-11-24 19:00 | EKG REPORT ---
SEVERITY:- BORDERLINE ECG - SINUS RHYTHM BORDERLINE LEFT AXIS DEVIATION BORDERLINE T ABNORMALITIES, ANT-LAT LEADS : Confirmed by: Roni Friend MD 24-Nov-2017 18:59:37
--- NOTE | 2017-11-24 20:47 | Progress Note ---
Provider Note Provider Note: Patient was seen and examined. History reviewed. Patient did have a similar spell about a year ago both occurring in the bathroom while relieving herself. Patient also felt very flushed, subsequently was noted to be sweaty, nauseous and did vomit. The history is very suggestive of vasovagal/neurocardiogenic syncope. At this point recommend IV fluids, continued monitoring, 2D echo. Recommend avoiding diuretics and vasodilators in patient suspected of having vasovagal/neurocardiogenic syncope. May consider replacing amitriptyline with other non-benzodiazepine MARIA ESTHER receptor agonist sedatives. Further evaluation would need a event monitor as an outpatient. Will continue to follow.
[2017-11-24 22:44] LABS: ALANINE AMINOTRANSFERASE 35 U/L (9-52); ALBUMIN 3.7 g/dL (3.5-5.0); ALKALINE PHOSPHATASE 71 U/L (38-126); ANION GAP 11 (5-19); ASPARTATE AMINO TRANSFERASE 17 U/L (14-36); BILIRUBIN,DIRECT 0.1 mg/dL (0.0-0.4); BILIRUBIN,TOTAL 0.2 mg/dL (0.2-1.3); BLOOD UREA NITROGEN 17 mg/dL (7-20); CALCIUM 9.3 mg/dL (8.4-10.2); CARBON DIOXIDE 26 mmol/L (22-30); CHLORIDE 103 mmol/L (98-107); CREATINE KINASE 83 U/L (30-135); GLUCOSE 85 mg/dL (75-110); POTASSIUM 3.8 mmol/L (3.6-5.0); SODIUM 139.5 mmol/L (137-145); TOTAL PROTEIN 5.8 g/dL (6.3-8.2)
[2017-11-24 22:55] LABS: CREATINE KINASE MB 0.98 ng/mL (<4.55)
[2017-11-24 22:56] LABS: TROPONIN I < 0.012 ng/mL
[2017-11-25 04:43] LABS: ANION GAP 7 (5-19); BLOOD UREA NITROGEN 16 mg/dL (7-20); CALCIUM 8.7 mg/dL (8.4-10.2); CARBON DIOXIDE 23 mmol/L (22-30); CHLORIDE 110 mmol/L (98-107); GLUCOSE 87 mg/dL (75-110); POTASSIUM 3.5 mmol/L (3.6-5.0); SODIUM 140.3 mmol/L (137-145)
--- NOTE | 2017-11-25 08:08 | EKG REPORT ---
SEVERITY:- ABNORMAL ECG - SINUS RHYTHM MULTIPLE ATRIAL PREMATURE COMPLEXES BORDERLINE T ABNORMALITIES, DIFFUSE LEADS : Confirmed by: Roni Friend MD 25-Nov-2017 08:08:10
--- NOTE | 2017-11-25 09:24 | PDOC CONSULTATION ---
Consultation Consult Date: 11/24/17 Attending physician:: ROSITA WHITE Consult reason:: Syncope History of Present Illness Admission Date/PCP: 11/24/17 18:03 NICHOLAS ALDANA MD Patient complains of: Syncope History of Present Illness: BRAVO MOHAN is a 67 year old female who presented to the emergency room with complaints of passing out for a few seconds. This was accompanied by loss of bowel movement however she had been on the way to the bathroom to do just that. She said she felt a little woozy and knew this was coming on and apparently she was out for a few seconds. There was no preceding chest pain nausea although she did vomit after the event. She gives a prior history of such event about a year ago but said nothing was really found then and she has not had any other episode. She denies any chest pain palpitations or difficulty breathing. While I was in the room with I did notice have pulse to be low in the low 50s and she was irregular. There was no dizziness or any other pertinent symptoms at this time. She has not had a cough or fever or any history of cardiac disease or thyroid disease or any arrhythmias as far as she knows. 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 Patient denies any history of sustained palpitations. She does have history of hypertension. She denies any history of diabetes. She denies any history of prior strokes or seizure disorders. Past Medical History Cardiac Medical History: Denies: Coronary Artery Disease, Myocardial Infarction, Hypertension Pulmonary Medical History: Denies: Asthma, Bronchitis, Chronic Obstructive Pulmonary Disease (COPD), Pneumonia Neurological Medical History: Denies: Seizures Endocrine Medical History: Reports: Diabetes Mellitus Type 2 Malignancy Medical History: Reports: Skin Cancer Musculoskeltal Medical History: Denies: Arthritis Hematology: Reports: Anemia Past Surgical History Past Surgical History: Reports: Appendectomy, Cholecystectomy, Hysterectomy, Orthopedic Surgery - "lower back", Tonsillectomy Denies: Pacemaker Social History Information Source: Patient Smoking Status: Never Smoker - Advance Directive Resuscitation Status: Full Code Family History Family History: Reviewed & Not Pertinent Parental Family History Reviewed: Yes Children Family History Reviewed: Yes Sibling(s) Family History Reviewed.: Yes Medication/Allergy Home Medications: Allopurinol [Zyloprim 100 mg Tablet] 100 mg PO DAILY 11/24/17 Aspirin [Ecotrin 81 mg EC Tablet] 81 mg PO DAILY 11/24/17 Duloxetine HCl [Cymbalta] 60 mg PO DAILY 11/24/17 Ferrous Sulfate [Feosol 325 mg Tablet] 325 mg PO DAILY 11/24/17 Fluticasone Propionate [Flonase Nasal [place] 50 Mcg/[place] 16 gm] 1 spray NASL DAILY 11/24/17 Fluticasone/Salmeterol [Advair 250-50 Diskus 14 Dose/Diskus] 1 puff IH Q12 11/24 Imipramine HCl [Tofranil 25 mg Tablet] 25 mg PO QHS 11/24/17 Metformin HCl [Glucophage 500 mg Tablet] 500 mg PO DAILY 11/24/17 Omeprazole 40 mg PO ACBRKFST 11/24/17 Pramipexole Di-HCl [Pramipexole Dihydrochloride] 0.5 mg PO QHS 11/24/17 Triamterene/Hydrochlorothiazid [Triamterene-Hctz 37.5-25 mg Tb] 2 tab PO DAILY 11/24/17 Allergies/Adverse Reactions: adhesive Allergy (Intermediate, Verified 09/02/17 11:18) Blisters latex [Latex] Allergy (Mild, Verified 09/02/17 11:18) rash acetaminophen [From Vicodin] Adverse Reaction (Intermediate, Verified 09/02/17 11:18) Hallucinations hydrocodone bitartrate [From Vicodin] Adverse Reaction (Intermediate, Verified 09/02/17 11:18) Hallucinations oxycodone HCl [From Percocet] Adverse Reaction (Intermediate, Verified 09/02/17 11:18) Hallucinations diazepam [From Valium] Adverse Reaction (Verified 09/02/17 12:09) Review of Systems Review of Systems: Please see history of present illness and past medical history as wall. Constitutional: No fever or chills reported. Head : No recent chronic headaches, recent head injury. Eyes: No recent eye pain, diplopia, redness, discharge, acute visual changes. Ears: No recent chronic ear pain, acute hearing loss, ear discharge. Oral cavity: No recent ulcerations, bleeding, oral cavity discomfort. Neck: No recent acute neck pain reported. Hematologic: No recent easy bruising or bleeding or hematologic malignancy reported. Lymphatic: No recent lymphatic malignancy, chronic lymphadenopathy reported yet Cardiovascular system review: See history of present illness. Respiratory system review: No recent chronic cough, hemoptysis, blood clots in the lungs reported. Mild Shortness of breath on exertion. Presents with syncope. Gastrointestinal system review: Describes intermittent abdominal pain in the right lower quadrant, hematemesis, melena, recent change in bowel habits. Genitourinary system review: No recent acute or chronic hematuria, flank pain, UTI etc. reported. Skin system review: Negative for any recent abnormal bruising, no rash, no pruritus reported. Neurologic: No prior history of strokes, mini strokes, seizure disorder. Psychologic: No history of major psychosis or major depression reported. Musculoskeletal: Minor aches and pains reported. No acute joint swelling reported. Endocrine: No recent polyuria, polydipsia, recent heat or cold intolerance. Physical Exam Vital Signs: Temp Pulse Resp BP Pulse Ox 98.0 F 57 L 16 115/65 100 11/24/17 19:44 11/24/17 19:44 11/24/17 19:44 11/24/17 19:44 11/24/17 19:44 Exam: GENERAL: well-nourished and in no acute distress. Alert and oriented x3 HEAD: Atraumatic, normocephalic. EYES: Pupils equal round and reactive to light, extraocular movements intact, sclera anicteric, conjunctiva are normal. ENT: TMs normal, nares patent, oropharynx clear without exudates. Moist mucous membranes. No oral ulcerations or bleeding gums noted NECK: supple without lymphadenopathy. Trachea is central. No cervical or axillary lymphadenopathy noted. Carotids are 2+, JVD WNL LUNGS: Respiration seems nonlabored, no significant accessory muscle action noted. Breath sounds clear to auscultation bilaterally and equal noted. No wheezes rales or rhonchi noted. No significant dullness noted on percussion. CHEST: Palpation of the chest wall shows no significant chest wall tenderness. No other significant abnormalities noted. 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 ABDOMEN: Soft, slight right lower quadrant tenderness appreciated, normoactive bowel sounds. No guarding, no rebound. No rigidity noted . No masses appreciated. EXTREMITIES: Pedal pulses are 1-2+, no calf tenderness noted. No clubbing or cyanosis.trace pedal edema noted NEUROLOGICAL: Focused neurological exam showed no significant neurologic deficit. Normal speech, no focal weakness appreciated. PSYCH: Normal mood, normal affect. Judgment and insight within normal limits. SKIN: No significant ecchymosis, skin is noted to be warm. MUSCULOSKELETAL EXAM: No significant acute joint swelling noted. Results EKG Comments: Sinus bradycardia with minor nonspecific ST-T wave changes Impressions: Chest X-Ray 11/24/17 15:11 IMPRESSION: NO ACUTE RADIOGRAPHIC FINDING IN THE CHEST. Head CT 11/24/17 15:18 IMPRESSION: NORMAL BRAIN CT WITHOUT CONTRAST. EVIDENCE OF ACUTE STROKE: NO. Assessment & Plan - Diagnosis (1) Syncope Qualifiers: Syncope type: unspecified Qualified Code(s): R55 - Syncope and collapse Is this a current diagnosis for this admission?: Yes (2) Hypertension Is this a current diagnosis for this admission?: Yes (3) Bradycardia Is this a current diagnosis for this admission?: Yes (4) Hypokalemia Is this a current diagnosis for this admission?: Yes - Notes Notes: Syncope: By history most suggestive of vasovagal/neurocardiogenic. However at patient's age, it could well be sick sinus syndrome, other conduction disorder such as AV block, ventricular tachyarrhythmia etc. At this point will recommend gentle hydration, stopping diuretics, avoiding vasodilators. Continue monitoring. Should patient have bradycardia at heart rate less than 40 while awake, or have tachybradycardia episode or had significant pauses lasting more than 3 seconds while awake, patient would be a candidate for transfer to tertiary care for permanent pacemaker placement. Bradycardia: Observe closely for any significant bradycardia. Hypokalemia: Replace potassium. Hypertension: Better medication in this lady would be angiotensin receptor selam or SUKI inhibitor. Avoid diuretics and pure vasodilators. - Time Time Spent: 30 to 50 Minutes - CODE STATUS was discussed, patient remains full code. Surrogate decision-maker unchanged. Multiple medical problems were addressed. More than 50% of the time spent coordinating care, discussing management plans with involved caregivers. Management plans discussed with involved personnels. Medical decision making was of moderate to high complexity , patient's has multiple comorbidities. Medications reviewed and adjusted accordingly: Yes
[2017-11-25] MEDS: FAMOTIDINE 20 MG TABLET PO SCH ×2 (10:08→21:12)
[2017-11-25] MEDS: ENOXAPARIN SODIUM INJ 40 MG/0.4 ML DISP.SYRIN SUBCUT SCH (10:09)
[2017-11-25] MEDS: DOCUSATE SODIUM 100 MG CAPSULE PO SCH (10:13)
[2017-11-25] MEDS ORDERED: POTASSIUM CHLORIDE 10 MEQ TABLET.SA PO ONE (11:00)
--- NOTE | 2017-11-25 11:11 | PDOC PROGRESS REPORT ---
Subjective Progress Note for:: 11/25/17 Subjective:: Patient was moved to the unit last night, because the doctor next called about patient heart rate being in the 150s as well as having some significant bradycardia with heart rate in the 40s. This morning I and the unit nurses looked through the telemetry strips available from 7 PM yesterday and onwards but could not find any strips showing heart rate of 150. Patient had heart rate in the 40s. However no significant pauses were noted. There was no good symptom correlation. At this point therefore it is recommended that patient be continued to be closely monitored. Pt is denying any chest arm or neck discomfort. Patient denying any PND, orthopnea. Patient denying any fever chills. Patient denying any other significant discomfort. Patient is maintaining sinus rhythm. Frequent PACs are noted. Review of systems: Rest review of systems negative. Medications: Medications have been reviewed. Reason For Visit: SYNCOPE Physical Exam Vital Signs: Temp Pulse Resp BP Pulse Ox 98.0 F 63 16 107/61 93 11/25/17 07:54 11/25/17 10:27 11/25/17 10:27 11/25/17 09:10 11/25/17 10:27 Intake & Output 11/24/17 11/25/17 11/26/17 06:59 06:59 06:59 Intake Total 150 Output Total 700 Balance -700 150 Weight 82.1 kg Exam: GENERAL: well-nourished and in no acute distress. Alert and oriented x3 HEAD: Atraumatic, normocephalic. EYES: Pupils equal round and reactive to light, extraocular movements intact, sclera anicteric, conjunctiva are normal. ENT: TMs normal, nares patent, oropharynx clear without exudates. Moist mucous membranes. No oral ulcerations or bleeding gums noted NECK: supple without lymphadenopathy. Trachea is central. No cervical or axillary lymphadenopathy noted. Carotids are 2+, JVD WNL LUNGS: Respiration seems nonlabored, no significant accessory muscle action noted. Breath sounds clear to auscultation bilaterally and equal noted. No wheezes rales or rhonchi noted. No significant dullness noted on percussion. CHEST: Palpation of the chest wall shows no significant chest wall tenderness. No other significant abnormalities noted. 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 ABDOMEN: Soft, no significant tenderness appreciated, normoactive bowel sounds. No guarding, no rebound. No rigidity noted . No masses appreciated. EXTREMITIES: Pedal pulses are 1-2+, no calf tenderness noted. No clubbing or cyanosis.trace to 1+ pedal edema noted NEUROLOGICAL: Focused neurological exam showed no significant neurologic deficit. Normal speech, no focal weakness appreciated. PSYCH: Normal mood, normal affect. Judgment and insight within normal limits. SKIN: No significant ecchymosis, skin is noted to be warm. MUSCULOSKELETAL EXAM: No significant acute joint swelling noted. Results Laboratory Results: 11/25/17 03:59 11/24/17 11/24/17 11/25/17 22:20 22:20 03:59 Sodium 139.5 140.3 Potassium 3.8 3.5 L Chloride 103 110 H Carbon Dioxide 26 23 Anion Gap 11 7 BUN 17 16 Creatinine 0.90 0.75 Est GFR ( Amer) > 60 > 60 Est GFR (Non-Af Amer) > 60 > 60 Glucose 85 87 Calcium 9.3 8.7 Magnesium 1.9 1.9 Total Bilirubin 0.2 AST 17 ALT 35 Alkaline Phosphatase 71 Total Protein 5.8 L Albumin 3.7 TSH 0.81 11/25/17 03:59 Sodium Potassium Chloride Carbon Dioxide Anion Gap BUN Creatinine Est GFR ( Amer) Est GFR (Non-Af Amer) Glucose Calcium Magnesium Total Bilirubin AST ALT Alkaline Phosphatase Total Protein Albumin TSH 0.56 11/24/17 11/24/17 11/25/17 22:20 22:20 03:59 Creatine Kinase 83 CK-MB (CK-2) 0.98 Troponin I < 0.012 < 0.012 Impressions: Chest X-Ray 11/24/17 15:11 IMPRESSION: NO ACUTE RADIOGRAPHIC FINDING IN THE CHEST. Head CT 11/24/17 15:18 IMPRESSION: NORMAL BRAIN CT WITHOUT CONTRAST. EVIDENCE OF ACUTE STROKE: NO. Assessment & Plan - Diagnosis (1) Hypertension Is this a current diagnosis for this admission?: Yes (2) Bradycardia Is this a current diagnosis for this admission?: Yes (3) Hypokalemia Is this a current diagnosis for this admission?: Yes (4) Syncope Qualifiers: Syncope type: unspecified Qualified Code(s): R55 - Syncope and collapse Is this a current diagnosis for this admission?: Yes - Notes Notes: Patient is maintaining a stable heart rhythm. Patient is noted to be intermittently bradycardic but heart rate mostly above 40. Frequent APCs are noted. At this point will recommend correcting electrolytes, slow hydration. May consider GI/surgical evaluation because of right lower quadrant discomfort being noted yesterday. TSH level came back normal. Hypokalemia: This is being corrected. Dr. Sloan Eaton to cover through the weekend. - Time Time with patient: 15-25 minutes - CODE STATUS was discussed, patient remains full code. Surrogate decision-maker patient's . Multiple medical problems were addressed. More than 50% of the time spent coordinating care, discussing management plans with involved caregivers. Management plans discussed with involved personnels. Medical decision making was of moderate to high complexity, patient's has multiple comorbidities. Medications reviewed and adjusted accordingly: Yes
--- NOTE | 2017-11-25 12:57 | RADIOLOGY REPORT (SQ) ---
EXAM DESCRIPTION: CAROTID DOPPLER COMPLETED DATE/TIME: 11/25/2017 12:38 pm REASON FOR STUDY: Syncope R00.1 BRADYCARDIA, UNSPECIFIED COMPARISON: None. TECHNIQUE: Grayscale ultrasound, Doppler velocity and spectra, and color Doppler images acquired of the extra-cranial carotid and vertebral arteries. Images stored on PACS. LIMITATIONS: None. FINDINGS: RIGHT CAROTID CCA Velocities: Within normal limits. ICA Velocities Peak systolic 166cm/s. End diastolic 50cm/s. Proximal ICA/CCA peak systolic ratio 1.7. Spectra normal. There is a small amount of plaque in the proximal internal carotid. LEFT CAROTID CCA Velocities: Within normal limits. ICA Velocities Peak systolic 1.39cm/s. End diastolic 56cm/s. Proximal ICA/CCA peak systolic ratio 1.3. Spectra normal. There is a small amount of plaque in the proximal internal carotid. VERTEBRAL ARTERIES: Antegrade flow. Normal waveforms. SUBCLAVIAN ARTERIES: No finding. OTHER: No other significant finding. IMPRESSION: NO HEMODYNAMICALLY SIGNIFICANT STENOSIS. COMMENT: Quality ID #[id number]: Velocity criteria are extrapolated from the diameter data as defined by t he Society of Radiologists in Ultrasound Consensus Conference. Radiology 2003: 229; 340-346. TECHNICAL DOCUMENTATION: JOB ID: [id number] [employer]- All Rights Reserved Reading location - IP/workstation name: [email or web address]
--- NOTE | 2017-11-25 17:45 | PDOC PROGRESS REPORT ---
Subjective Progress Note for:: 11/25/17 Subjective:: She was admitted with syncope. She was noted to be bradycardic with questionable periods of tachycardia and she was moved to the intensive care unit. Patient has remained stable. She has been seen by Dr. Mcginnis. She remains in sinus rhythm although with bouts of PACs but she remains asymptomatic. Reason For Visit: SYNCOPE Physical Exam Vital Signs: Temp Pulse Resp BP Pulse Ox 98.1 F 63 15 120/65 96 11/25/17 16:00 11/25/17 10:27 11/25/17 14:10 11/25/17 14:10 11/25/17 14:10 Intake & Output 11/24/17 11/25/17 11/26/17 06:59 06:59 06:59 Intake Total 407 Output Total 700 150 Balance -700 257 Weight 82.1 kg General appearance: PRESENT: no acute distress Head exam: PRESENT: atraumatic Ear exam: PRESENT: normal external ear exam Neck exam: ABSENT: carotid bruit, JVD, lymphadenopathy, thyromegaly Respiratory exam: PRESENT: clear to auscultation jaswinder. ABSENT: rales, rhonchi, wheezes Pulses: PRESENT: normal dorsalis pedis pul GI/Abdominal exam: PRESENT: normal bowel sounds, soft. ABSENT: distended, guarding, mass, organolmegaly, rebound, tenderness Extremities exam: PRESENT: full ROM. ABSENT: calf tenderness, clubbing, pedal edema Neurological exam: PRESENT: alert, awake, oriented to person, oriented to place , oriented to time Psychiatric exam: PRESENT: appropriate affect, normal mood. ABSENT: homicidal ideation, suicidal ideation Results Laboratory Results: 11/25/17 03:59 11/24/17 11/24/17 11/25/17 22:20 22:20 03:59 Sodium 139.5 140.3 Potassium 3.8 3.5 L Chloride 103 110 H Carbon Dioxide 26 23 Anion Gap 11 7 BUN 17 16 Creatinine 0.90 0.75 Est GFR ( Amer) > 60 > 60 Est GFR (Non-Af Amer) > 60 > 60 Glucose 85 87 Calcium 9.3 8.7 Magnesium 1.9 1.9 Total Bilirubin 0.2 AST 17 ALT 35 Alkaline Phosphatase 71 Total Protein 5.8 L Albumin 3.7 TSH 0.81 11/25/17 03:59 Sodium Potassium Chloride Carbon Dioxide Anion Gap BUN Creatinine Est GFR ( Amer) Est GFR (Non-Af Amer) Glucose Calcium Magnesium Total Bilirubin AST ALT Alkaline Phosphatase Total Protein Albumin TSH 0.56 11/24/17 11/24/17 11/25/17 22:20 22:20 03:59 Creatine Kinase 83 CK-MB (CK-2) 0.98 Troponin I < 0.012 < 0.012 Impressions: Chest X-Ray 11/24/17 15:11 IMPRESSION: NO ACUTE RADIOGRAPHIC FINDING IN THE CHEST. Head CT 11/24/17 15:18 IMPRESSION: NORMAL BRAIN CT WITHOUT CONTRAST. EVIDENCE OF ACUTE STROKE: NO. Carotid Doppler Study 11/25/17 00:00 IMPRESSION: NO HEMODYNAMICALLY SIGNIFICANT STENOSIS. Assessment & Plan - Diagnosis (1) Bradycardia Is this a current diagnosis for this admission?: Yes Plan: Patient will be monitored in the intensive care unit. At this time there is no indication for pacemaker placement as her periods of bradycardia and not related to any symptoms. We will continue to monitor closely (2) Hypokalemia Is this a current diagnosis for this admission?: Yes Plan: We will replace as needed (3) Syncope Qualifiers: Syncope type: unspecified Qualified Code(s): R55 - Syncope and collapse Is this a current diagnosis for this admission?: Yes Plan: I believe this is likely from the arrhythmia that was been witnessing on telemetry. Once patient is stable enough we will try and ambulate her - Time Time Spent with patient: 15-24 minutes Medications reviewed and adjusted accordingly: Yes Anticipated discharge: Home Within: within 48 hours
[2017-11-25] MEDS: ASPIRIN 81 MG TABLET, ENT COATED PO SCH (19:09)
--- NOTE | 2017-11-25 19:27 | XCELERA REPORT ---
[address] [id number] Transthoracic Echocardiogram Report Name: BRAVO MOHAN Age: 67 yrs Gender: Female : 1950 Patient Status: Inpatient Patient Location: ICU^601^A Study Date: 11/25/2017 09:17 AM Height: 63 in Weight: 181 lb BSA: 1.9 m2 Procedure: A complete two-dimensional transthoracic echocardiogram was performed (2D, M-mode, spectral and color flow Doppler). The study was technically adequate with some images being suboptimal in quality. Reason For Study: Syncope Ordering Physician: ALFREDO RAMOS Performed By: Yrn Ronquillo Interpretation Summary The left ventricular ejection fraction is normal. There is normal left ventricular wall thickness. The left ventricle is grossly normal size. Doppler measurements suggest impaired left ventricular relaxation, which is associated with grade I/IV or mild diastolic dysfunction Wall motion cannot be accurately commented on, but no definite regional wall motion abnormalities noted. The right ventricular systolic function is normal. The right atrium is normal in size The left atrial size is normal. There is a trace amount of mitral regurgitation There is no mitral valve stenosis. No aortic regurgitation is present. There is no aortic valve stenosis There is a trace or physiologic amount of tricuspid regurgitation Tricuspid regurgitation jet envelope not well defined to measure RV systolic pressure accurately. The aortic root is not well visualized but is probably normal size. The inferior vena cava appeared normal and decreased > 50% with respiration (RAP 5-10 mmHg) There is no pericardial effusion. MMode/2D Measurements & Calculations RVDd: 2.4 cm LVIDd: 4.4 cm FS: 40.0 % Ao root diam: 3.2 cm IVSd: 0.91 cm LVIDs: 2.6 cm EDV(Teich): 86.6 ml LVPWd: 1.0 cm ESV(Teich): 25.2 ml Ao root area: 7.8 cm2 EF(Teich): 70.9 % LA dimension: 2.9 cm Doppler Measurements & Calculations MV E max krystle: MV P1/2t max krystle: Ao V2 max: LV V1 max P.8 cm/sec 90.8 cm/sec 168.3 cm/sec 5.0 mmHg MV A max krystle: MV P1/2t: 56.7 msec Ao max PG: LV V1 max: 111.1 cm/sec 11.3 mmHg 112.0 cm/sec MV E/A: 0.84 MVA(P1/2t): 3.9 cm2 MV dec slope: 469.0 cm/sec2 PA V2 max: TR max krystle: 70.6 cm/sec 188.9 cm/sec PA max P.0 mmHgTR max P.3 mmHg Left Ventricle The left ventricle is grossly normal size. There is normal left ventricular wall thickness. The left ventricular ejection fraction is normal. Doppler measurements suggest impaired left ventricular relaxation, which is associated with grade I/IV or mild diastolic dysfunction. Wall motion cannot be accurately commented on, but no definite regional wall motion abnormalities noted. Right Ventricle The right ventricle is grossly normal size. There is normal right ventricular wall thickness. The right ventricular systolic function is normal. Atria The right atrium is normal in size. The left atrial size is normal. Interarterial septum not well visualized and not well dopplered. Cannot comment on ASD/PFO presence. Mitral Valve The mitral valve is grossly normal. There is no mitral valve stenosis. There is a trace amount of mitral regurgitation. Aortic Valve The aortic valve is not well visualized secondary to technical limitations. There is no aortic valve stenosis. No aortic regurgitation is present. Tricuspid Valve The tricuspid valve is not well visualized, but is grossly normal. There is no tricuspid stenosis. There is a trace or physiologic amount of tricuspid regurgitation. Tricuspid regurgitation jet envelope not well defined to measure RV systolic pressure accurately. Pulmonic Valve The pulmonic valve is not well visualized. Great Vessels The aortic root is not well visualized but is probably normal size. The inferior vena cava appeared normal and decreased > 50% with respiration (RAP 5-10 mmHg). Effusions There is no pericardial effusion. : ALFREDO RAMOS > Braeden Ronquillo
[2017-11-25] MEDS: FLUTICASONE/SALMETEROL DISKUS 250-50 MCG/DOSE IH SCH (21:12)
[2017-11-26 04:18] LABS: MEAN CORPUSCULAR HEMOGLOBIN 29.1 pg (27.0-33.4); MEAN CORPUSCULAR HGB CONC 33.4 g/dL (32.0-36.0); MEAN CORPUSCULAR VOLUME 87 fl (80-97); PLATELET COUNT 232 10^3/uL (150-450); RED BLOOD COUNT 4.81 10^6/uL (3.72-5.28); RED CELL DISTRIBUTION WIDTH 14.2 % (11.5-14.0); WHITE BLOOD COUNT 6.2 10^3/uL (4.0-10.5)
[2017-11-26 04:37] LABS: ANION GAP 6 (5-19); BLOOD UREA NITROGEN 17 mg/dL (7-20); CALCIUM 9.6 mg/dL (8.4-10.2); CARBON DIOXIDE 26 mmol/L (22-30); CHLORIDE 110 mmol/L (98-107); GLUCOSE 88 mg/dL (75-110); SODIUM 141.6 mmol/L (137-145)
[2017-11-26] MEDS: DOCUSATE SODIUM 100 MG CAPSULE PO SCH (09:33)
[2017-11-26] MEDS: FERROUS SULFATE 325 MG TABLET PO SCH (09:34)
[2017-11-26] MEDS: FAMOTIDINE 20 MG TABLET PO SCH ×2 (09:34→21:28)
[2017-11-26] MEDS: ALLOPURINOL 100 MG TABLET PO SCH (09:34)
[2017-11-26] MEDS: DULOXETINE HCL 30 MG CAPSULE.DR PO SCH (09:35)
[2017-11-26] MEDS: ENOXAPARIN SODIUM INJ 40 MG/0.4 ML DISP.SYRIN SUBCUT SCH (09:36)
[2017-11-26] MEDS: FLUTICASONE NASAL SPRAY 50 MCG/SPRY 120 SPRAY/16 GM NASL SCH (09:37)
[2017-11-26] MEDS: FLUTICASONE/SALMETEROL DISKUS 250-50 MCG/DOSE IH SCH ×2 (09:38→21:28)
--- NOTE | 2017-11-26 12:57 | PDOC PROGRESS REPORT ---
Subjective Progress Note for:: 11/26/17 Subjective:: She was admitted with syncope. She was noted to be bradycardic with questionable periods of tachycardia and she was moved to the intensive care unit. Patient has remained stable. She has been seen by Dr. Ronquillo it appears she had another bout of bile episode. She got out of bed to use the commode last night but her heart rate remained in the 70s. This apparently happened again overnight and he was initially thought that her heart rate had dropped commensurate with her symptoms however the thrill performer reviewed the strip and is felt that patient's heart rate was actually in the 50s at the time of this episodes and so still did not correlate. He recommends at this time that there is no need to transfer her although initiated possible transfer to [facility] so this has been put on hold. Machine Operator Picker recommends continuing observation in the intensive care unit. Reason For Visit: SYNCOPE Physical Exam Vital Signs: Temp Pulse Resp BP Pulse Ox 98.1 F 63 22 H 164/62 H 96 11/26/17 12:00 11/26/17 12:00 11/26/17 12:00 11/26/17 12:00 11/26/17 12:00 Intake & Output 11/25/17 11/26/17 11/27/17 06:59 06:59 06:59 Intake Total 452 Output Total 700 1250 300 Balance -700 -798 -300 Weight 82.1 kg 78.1 kg General appearance: PRESENT: no acute distress, well-nourished Head exam: PRESENT: atraumatic Ear exam: PRESENT: normal external ear exam Neck exam: ABSENT: carotid bruit, JVD, lymphadenopathy, thyromegaly Respiratory exam: PRESENT: clear to auscultation jaswinder. ABSENT: rales, rhonchi, wheezes Cardiovascular exam: PRESENT: bradycardia, irregular rhythm, +S1, +S2 GI/Abdominal exam: PRESENT: normal bowel sounds, soft. ABSENT: distended, guarding, mass, organolmegaly, rebound, tenderness Rectal exam: PRESENT: deferred Extremities exam: PRESENT: full ROM. ABSENT: calf tenderness, clubbing, pedal edema Musculoskeletal exam: PRESENT: ambulatory Neurological exam: PRESENT: alert, awake, oriented to person, oriented to time, oriented to situation Psychiatric exam: PRESENT: appropriate affect, normal mood. ABSENT: homicidal ideation, suicidal ideation Results Laboratory Results: 11/26/17 04:11 11/26/17 04:11 11/26/17 11/26/17 04:11 04:11 WBC 6.2 RBC 4.81 Hgb 14.0 Hct 42.0 MCV 87 MCH 29.1 MCHC 33.4 RDW 14.2 H Plt Count 232 Sodium 141.6 Potassium 4.0 Chloride 110 H Carbon Dioxide 26 Anion Gap 6 BUN 17 Creatinine 0.74 Est GFR ( Amer) > 60 Est GFR (Non-Af Amer) > 60 Glucose 88 Calcium 9.6 11/24/17 11/24/17 11/25/17 22:20 22:20 03:59 Creatine Kinase 83 CK-MB (CK-2) 0.98 Troponin I < 0.012 < 0.012 Impressions: Chest X-Ray 11/24/17 15:11 IMPRESSION: NO ACUTE RADIOGRAPHIC FINDING IN THE CHEST. Head CT 11/24/17 15:18 IMPRESSION: NORMAL BRAIN CT WITHOUT CONTRAST. EVIDENCE OF ACUTE STROKE: NO. Carotid Doppler Study 11/25/17 00:00 IMPRESSION: NO HEMODYNAMICALLY SIGNIFICANT STENOSIS. Assessment & Plan - Diagnosis (1) Bradycardia Is this a current diagnosis for this admission?: Yes Plan: Continue to monitor in the intensive care unit. At this time there is no indication for pacemaker placement as her periods of bradycardia do not correlate with symptoms (2) Hypokalemia Is this a current diagnosis for this admission?: Yes Plan: We will replace as needed (3) Syncope Qualifiers: Syncope type: unspecified Qualified Code(s): R55 - Syncope and collapse Is this a current diagnosis for this admission?: Yes Plan: Intensive care monitor
[2017-11-26] MEDS: ASPIRIN 81 MG TABLET, ENT COATED PO SCH (18:04)
[2017-11-27] MEDS: DOCUSATE SODIUM 100 MG CAPSULE PO SCH (07:46)
[2017-11-27] MEDS: FLUTICASONE/SALMETEROL DISKUS 250-50 MCG/DOSE IH SCH ×2 (09:46→21:22)
[2017-11-27] MEDS: FLUTICASONE NASAL SPRAY 50 MCG/SPRY 120 SPRAY/16 GM NASL SCH (09:46)
[2017-11-27] MEDS: FAMOTIDINE 20 MG TABLET PO SCH ×2 (09:47→21:22)
[2017-11-27] MEDS: ENOXAPARIN SODIUM INJ 40 MG/0.4 ML DISP.SYRIN SUBCUT SCH (09:47)
[2017-11-27] MEDS: FERROUS SULFATE 325 MG TABLET PO SCH (09:47)
[2017-11-27] MEDS: DULOXETINE HCL 30 MG CAPSULE.DR PO SCH (09:47)
[2017-11-27] MEDS: ALLOPURINOL 100 MG TABLET PO SCH (09:47)
--- NOTE | 2017-11-27 15:44 | PDOC PROGRESS REPORT ---
Subjective Progress Note for:: 11/27/17 Subjective:: She was admitted with syncope. She was noted to be bradycardic with questionable periods of tachycardia and she was moved to the intensive care unit. Patient has remained stable. She has been seen by Dr. Ronquillo it appears she had another bout of bile episode. She got out of bed to use the commode last night but her heart rate remained in the 70s. This apparently happened again overnight and he was initially thought that her heart rate had dropped commensurate with her symptoms however the candy decorator reviewed the strip and is felt that patient's heart rate was actually in the 50s at the time of this episodes and so still did not correlate. He recommends at this time that there is no need to transfer her although initiated possible transfer to [facility] so this has been put on hold. Customer Program Specialist recommends continuing observation in the intensive care unit. Reason For Visit: SYNCOPE Physical Exam Vital Signs: Temp Pulse Resp BP Pulse Ox 97.7 F 66 16 137/62 H 95 11/27/17 14:00 11/27/17 14:00 11/27/17 14:00 11/27/17 14:00 11/27/17 14:00 Intake & Output 11/26/17 11/27/17 11/28/17 06:59 06:59 06:59 Intake Total 452 110 870 Output Total 1250 850 400 Balance -798 -740 470 Weight 78.1 kg 78.7 kg General appearance: PRESENT: no acute distress, well-developed, well-nourished Head exam: PRESENT: atraumatic, normocephalic Eye exam: PRESENT: conjunctiva pink, EOMI, PERRLA. ABSENT: scleral icterus Ear exam: PRESENT: normal external ear exam Mouth exam: PRESENT: moist, tongue midline Neck exam: ABSENT: carotid bruit, JVD, lymphadenopathy, thyromegaly Respiratory exam: PRESENT: clear to auscultation jaswinder. ABSENT: rales, rhonchi, wheezes Cardiovascular exam: PRESENT: RRR. ABSENT: diastolic murmur, rubs, systolic murmur Pulses: PRESENT: normal dorsalis pedis pul Vascular exam: PRESENT: normal capillary refill GI/Abdominal exam: PRESENT: normal bowel sounds, soft. ABSENT: distended, guarding, mass, organolmegaly, rebound, tenderness Rectal exam: PRESENT: deferred Extremities exam: PRESENT: full ROM. ABSENT: calf tenderness, clubbing, pedal edema Neurological exam: PRESENT: alert, awake, oriented to person, oriented to place , oriented to time, oriented to situation, CN II-XII grossly intact. ABSENT: motor sensory deficit Psychiatric exam: PRESENT: appropriate affect, normal mood. ABSENT: homicidal ideation, suicidal ideation Skin exam: PRESENT: dry, intact, warm. ABSENT: cyanosis, rash Results Laboratory Results: 11/26/17 04:11 11/26/17 04:11 11/24/17 11/24/17 11/25/17 22:20 22:20 03:59 Creatine Kinase 83 CK-MB (CK-2) 0.98 Troponin I < 0.012 < 0.012 Impressions: Chest X-Ray 11/24/17 15:11 IMPRESSION: NO ACUTE RADIOGRAPHIC FINDING IN THE CHEST. Head CT 11/24/17 15:18 IMPRESSION: NORMAL BRAIN CT WITHOUT CONTRAST. EVIDENCE OF ACUTE STROKE: NO. Carotid Doppler Study 11/25/17 00:00 IMPRESSION: NO HEMODYNAMICALLY SIGNIFICANT STENOSIS. Assessment & Plan - Diagnosis (1) Bradycardia Is this a current diagnosis for this admission?: Yes Plan: Continue to monitor in the intensive care unit. At this time there is no indication for pacemaker placement as her periods of bradycardia do not correlate with symptoms She will benefit from event monitor at the time of discharge and she can follow- up with her candy decorator for possible referral to EP (2) Hypokalemia Is this a current diagnosis for this admission?: Yes Plan: Replaced (3) Syncope Qualifiers: Syncope type: unspecified Qualified Code(s): R55 - Syncope and collapse Is this a current diagnosis for this admission?: Yes Plan: no further episodes since yesterday. Actually had patient stand up and sit in the chair today. Although she says she felt a little weak and dizzy and she became a little bit more tachycardic with a heart rate going up to the lower 70s from about 50 there was no loss of consciousness or nystagmus or any other pertinent symptoms or signs. Her blood pressure remained the same. Patient did mention that she has had some inner ear problems and she actually has seen the ENT surgeon. In fact she mentions that she was supposed to get some tubes in ears this week. I will order an MRI to further evaluate posterior cerebellum and she may benefit from a tilt table test which will be done as outpatient if indicated. A PT consult will also be obtained and will discuss with Dr. Ronquillo in a.m. regarding placing a Holter monitor. - Time Time Spent with patient: 15-24 minutes Medications reviewed and adjusted accordingly: Yes Anticipated discharge: Home Within: within 48 hours - Inpatient Certification Based on my medical assessment, after consideration of the patient's comorbidities, presenting symptoms, or acuity I expect that the services needed warrant INPATIENT care.: Yes Medical Necessity: Need Close Monitoring Due to Risk of Patient Decompensation, Risk of Complication if Not Cared For in Hospital
[2017-11-27] MEDS: ASPIRIN 81 MG TABLET, ENT COATED PO SCH (18:10)
--- NOTE | 2017-11-27 20:45 | RADIOLOGY REPORT (SQ) ---
EXAM DESCRIPTION: MRI HEAD WITHOUT COMPLETED DATE/TIME: 11/27/2017 7:27 pm REASON FOR STUDY: Dizziness, Syncope, R00.1 BRADYCARDIA, UNSPECIFIED COMPARISON: None. TECHNIQUE: Multiplanar imaging includes non-contrasted T1, T2, FLAIR, and diffusion with ADC map seq uences. Images stored on PACS. LIMITATIONS: None. FINDINGS: ANATOMY: No anomalies. Normal vascular flow voids. Pituitary fossa normal. CSF SPACES: Normal in size and contour. No hemorrhage. CEREBRUM: Sulci and gyri normal in size and contour. Old lacunar infarct right basal ganglia. No ev idence of hemorrhage, mass, or extraaxial fluid collection. POSTERIOR FOSSA: No signal alteration. No hemorrhage. No edema, masses or mass effect. Internal norah tory canals, cerebello-pontine angles, are normal. Small amount of fluid in the left mastoids. DIFFUSION IMAGING: Negative for acute or sub-acute infarction. ORBITS: No masses. Globes normal. PARANASAL SINUSES: No fluid levels. Mucosa normal. OTHER: No other significant finding. IMPRESSION: No acute abnormality in the brain. EVIDENCE OF ACUTE STROKE: NO. TECHNICAL DOCUMENTATION: JOB ID: [id number] [employer]- All Rights Reserved Reading location - IP/workstation name: [email or web address]
--- NOTE | 2017-11-28 10:05 | EKG REPORT ---
SEVERITY:- ABNORMAL ECG - SINUS RHYTHM LOW VOLTAGE THROUGHOUT NONSPECIFIC T ABNORMALITIES, DIFFUSE LEADS : Confirmed by: Braeden Ronquillo 28-Nov-2017 10:04:03
[2017-11-28] MEDS: DULOXETINE HCL 30 MG CAPSULE.DR PO SCH (10:56)
[2017-11-28] MEDS: FERROUS SULFATE 325 MG TABLET PO SCH (10:57)
[2017-11-28] MEDS: ALLOPURINOL 100 MG TABLET PO SCH (10:57)
[2017-11-28] MEDS: FAMOTIDINE 20 MG TABLET PO SCH (10:57)
[2017-11-28] MEDS: FLUTICASONE NASAL SPRAY 50 MCG/SPRY 120 SPRAY/16 GM NASL SCH (10:58)
[2017-11-28] MEDS: FLUTICASONE/SALMETEROL DISKUS 250-50 MCG/DOSE IH SCH (10:58)
[2017-11-28] MEDS: ENOXAPARIN SODIUM INJ 40 MG/0.4 ML DISP.SYRIN SUBCUT SCH (11:00)
[2017-11-28] MEDS: DOCUSATE SODIUM 100 MG CAPSULE PO SCH (11:04)
--- NOTE | 2017-11-28 11:17 | PDOC PROGRESS REPORT ---
Subjective Progress Note for:: 11/28/17 Subjective:: Patient has been noted to be intermittently bradycardic but not severe enough. Also no significant pauses were noted. We just do not have any strips in the chart with severe bradycardia. Also there was no good symptom correlation. At this point therefore it is recommended that patient be continued to be closely monitored. Pt is denying any chest arm or neck discomfort. Patient denying any PND, orthopnea. Patient denying any fever chills. Patient denying any other significant discomfort. Patient is maintaining sinus rhythm. Frequent PACs are noted. Review of systems: Rest review of systems negative. Medications: Medications have been reviewed. Reason For Visit: SYNCOPE Physical Exam Vital Signs: Temp Pulse Resp BP Pulse Ox 97.9 F 68 19 133/66 H 93 11/28/17 08:01 11/28/17 08:01 11/28/17 08:01 11/28/17 08:01 11/28/17 08:01 Intake & Output 11/27/17 11/28/17 11/29/17 06:59 06:59 06:59 Intake Total 110 1290 Output Total 850 850 Balance -740 440 Weight 78.7 kg Exam: GENERAL: well-nourished and in no acute distress. Alert and oriented x3 HEAD: Atraumatic, normocephalic. EYES: Pupils equal round and reactive to light, extraocular movements intact, sclera anicteric, conjunctiva are normal. ENT: TMs normal, nares patent, oropharynx clear without exudates. Moist mucous membranes. No oral ulcerations or bleeding gums noted NECK: supple without lymphadenopathy. Trachea is central. No cervical or axillary lymphadenopathy noted. Carotids are 2+, JVD WNL LUNGS: Respiration seems nonlabored, no significant accessory muscle action noted. Breath sounds clear to auscultation bilaterally and equal noted. No wheezes rales or rhonchi noted. No significant dullness noted on percussion. CHEST: Palpation of the chest wall shows no significant chest wall tenderness. No other significant abnormalities noted. HEART: [place] WASHCOAT WIPER, No PSH, 1/6 JOSE D aortic area, 1/6 perez systolic murmur mitral area, no rubs, no gallops. ABDOMEN: Soft, no significant tenderness appreciated, normoactive bowel sounds. No guarding, no rebound. No rigidity noted . No masses appreciated. EXTREMITIES: Pedal pulses are 1-2+, no calf tenderness noted. No clubbing or cyanosis.trace to 1+ pedal edema noted NEUROLOGICAL: Focused neurological exam showed no significant neurologic deficit. Normal speech, no focal weakness appreciated. PSYCH: Normal mood, normal affect. Judgment and insight within normal limits. SKIN: No significant ecchymosis, skin is noted to be warm. MUSCULOSKELETAL EXAM: No significant acute joint swelling noted. Results Laboratory Results: 11/26/17 04:11 11/26/17 04:11 11/24/17 11/24/17 11/25/17 22:20 22:20 03:59 Creatine Kinase 83 CK-MB (CK-2) 0.98 Troponin I < 0.012 < 0.012 EKG Comments: Shows sinus rhythm with intermittent sinus bradycardia. Impressions: Chest X-Ray 11/24/17 15:11 IMPRESSION: NO ACUTE RADIOGRAPHIC FINDING IN THE CHEST. Head CT 11/24/17 15:18 IMPRESSION: NORMAL BRAIN CT WITHOUT CONTRAST. EVIDENCE OF ACUTE STROKE: NO. Carotid Doppler Study 11/25/17 00:00 IMPRESSION: NO HEMODYNAMICALLY SIGNIFICANT STENOSIS. Head MRI 11/27/17 00:00 IMPRESSION: No acute abnormality in the brain. EVIDENCE OF ACUTE STROKE: NO. Assessment & Plan - Diagnosis (1) Syncope Qualifiers: Syncope type: unspecified Qualified Code(s): R55 - Syncope and collapse Is this a current diagnosis for this admission?: Yes (2) Hypertension Is this a current diagnosis for this admission?: Yes (3) Bradycardia Is this a current diagnosis for this admission?: Yes (4) Hypokalemia Is this a current diagnosis for this admission?: Yes - Notes Notes: Syncope: By history most suggestive of vasovagal/neurocardiogenic. However at patient's age, it could well be sick sinus syndrome, other conduction disorder such as AV block, ventricular tachyarrhythmia etc. At this point will recommend gentle hydration, stopping diuretics, avoiding vasodilators. So far no significant pauses or significant symptomatic bradycardia have been documented. Patient however will benefit from prolonged monitoring as an outpatient via a event monitor/mobile cardiac telemetry monitoring. This has been scheduled for this afternoon at my office today. Bradycardia: Observe closely for any significant bradycardia. Hypokalemia: Resolved.. Hypertension: Better medication in this lady would be angiotensin receptor selam or SUKI inhibitor. Avoid diuretics and pure vasodilators. Abdominal discomfort. Patient did complain of right-sided abdominal discomfort. This has resolved. - Time Time with patient: 15-25 minutes Medications reviewed and adjusted accordingly: Yes
[2017-11-28] MEDS ORDERED: LISINOPRIL 10 MG TABLET PO ONE (12:15)
[2017-11-28 13:18] VITALS: BP 128/57
--- NOTE | 2017-11-28 15:56 | PDOC DISCHARGE SUMMARY ---
General - Admit/Disc Date/PCP Admission Date/Primary Care Provider: 11/24/17 18:03 NICHOLAS ALDANA MD Discharge Date: 11/28/17 - Discharge Diagnosis (1) Bradycardia Is this a current diagnosis for this admission?: Yes (2) Hypokalemia Is this a current diagnosis for this admission?: Yes (3) Syncope Is this a current diagnosis for this admission?: Yes - Additional Information Resuscitation Status: Full Code Discharge Diet: Cardiac Discharge Activity: Activity As Tolerated Prescriptions: Lisinopril 20 mg PO DAILY #30 tablet Home Medications: Allopurinol [Zyloprim 100 mg Tablet] 100 mg PO DAILY 11/24/17 Aspirin [Ecotrin 81 mg EC Tablet] 81 mg PO DAILY 11/24/17 Duloxetine HCl [Cymbalta] 60 mg PO DAILY 11/24/17 Ferrous Sulfate [Feosol 325 mg Tablet] 325 mg PO DAILY 11/24/17 Fluticasone Propionate [Flonase Nasal [place] 50 Mcg/[place] 16 gm] 1 spray NASL DAILY 11/24/17 Fluticasone/Salmeterol [Advair 250-50 Diskus 14 Dose/Diskus] 1 puff IH Q12 11/24 Imipramine HCl [Tofranil 25 mg Tablet] 25 mg PO QHS 11/24/17 Metformin HCl [Glucophage 500 mg Tablet] 500 mg PO DAILY 11/24/17 Omeprazole 40 mg PO ACBRKFST 11/24/17 Pramipexole Di-HCl [Pramipexole Dihydrochloride] 0.5 mg PO QHS 11/24/17 Lisinopril 20 mg PO DAILY #30 tablet 11/28/17 History of Present Illness History of Present Illness: BRAVO MOHAN is a 67 year old female who presented to the emergency room with complaints of passing out for a few seconds. This was accompanied by loss of bowel movement however she had been on the way to the bathroom to do just that. She said she felt a little woozy and knew this was coming on and apparently she was out for a few seconds. There was no preceding chest pain nausea although she did vomit after the event. She gives a prior history of such event about a year ago but said nothing was really found then and she has not had any other episode. She denies any chest pain palpitations or difficulty breathing. Hospital Course Hospital Course: Patient was admitted with copy and she was found to have varying degree of bradycardia. She also had premature atrial complexes with her bradycardia however was able to correlate symptoms with the bradycardia and so this was felt to be incidental and not related to her presenting symptoms. She was monitored in the intensive care unit on the telemetry as well as on the medical unit with no other significant arrhythmias found. Patient did have some other episodes of dizziness which did not correlate with the bradycardia. She received potassium supplementation due to persistent hypokalemia and she has since been taken off diuretics. She was seen by the prototype engineer manager who helped to manage her bradycardia. Was felt that his symptoms are not correlating with the bradycardia no pacemaker insertion was indicated however she has been discharged home with an event monitor and she will follow up with a prototype engineer manager as advised. Patient did subsequently give a history of's in air disease and in fact she is supposed to follow-up with ENT at the end of this week and she has been encouraged to do so. She has otherwise remained hemodynamically stable and so she has been discharged home at this time Patient ambulated with the nurses staff prior to discharge with no evidence of syncope or postural changes. It is felt that her syncope may be suggestive of vasovagal or neurocardiogenic etiology and she may also benefit from having a tilt table test done earlier as an outpatient if her symptoms persist. MRI of the brain done to rule out a posterior infarction or any vestibular component revealed no acute abnormalities in the brain. Patient has been discharged home in stable conditionEchocardiogram done was grossly intact with normal left ventricular ejection fraction and minimal grade 1 mild diastolic dysfunction Physical Exam Vital Signs: Temp Pulse Resp BP Pulse Ox 98.2 F 58 L 16 128/57 H 95 11/28/17 13:14 11/28/17 13:14 11/28/17 13:14 11/28/17 13:14 11/28/17 13:14 Intake & Output 11/27/17 11/28/17 11/29/17 06:59 06:59 06:59 Intake Total 110 1290 320 Output Total 850 850 500 Balance -740 440 -180 Weight 78.7 kg General appearance: PRESENT: well-developed, well-nourished - Pleasant female Head exam: PRESENT: atraumatic Eye exam: PRESENT: conjunctiva pink, EOMI, PERRLA. ABSENT: scleral icterus Neck exam: ABSENT: carotid bruit, JVD, lymphadenopathy, thyromegaly Respiratory exam: PRESENT: clear to auscultation jaswinder. ABSENT: rales, rhonchi, wheezes Cardiovascular exam: PRESENT: bradycardia, +S1, +S2 Pulses: PRESENT: normal dorsalis pedis pul Vascular exam: PRESENT: normal capillary refill GI/Abdominal exam: PRESENT: normal bowel sounds, soft. ABSENT: distended, guarding, mass, organolmegaly, rebound, tenderness Rectal exam: PRESENT: deferred Extremities exam: PRESENT: full ROM. ABSENT: calf tenderness, clubbing, pedal edema Musculoskeletal exam: PRESENT: ambulatory Neurological exam: PRESENT: alert, awake, oriented to person, oriented to place , oriented to time, oriented to situation, CN II-XII grossly intact. ABSENT: motor sensory deficit Psychiatric exam: PRESENT: appropriate affect, normal mood. ABSENT: homicidal ideation, suicidal ideation Results Laboratory Results: 11/26/17 04:11 11/26/17 04:11 11/24/17 11/24/17 11/25/17 22:20 22:20 03:59 Creatine Kinase 83 CK-MB (CK-2) 0.98 Troponin I < 0.012 < 0.012 Impressions: Chest X-Ray 11/24/17 15:11 IMPRESSION: NO ACUTE RADIOGRAPHIC FINDING IN THE CHEST. Head CT 11/24/17 15:18 IMPRESSION: NORMAL BRAIN CT WITHOUT CONTRAST. EVIDENCE OF ACUTE STROKE: NO. Carotid Doppler Study 11/25/17 00:00 IMPRESSION: NO HEMODYNAMICALLY SIGNIFICANT STENOSIS. Head MRI 11/27/17 00:00 IMPRESSION: No acute abnormality in the brain. EVIDENCE OF ACUTE STROKE: NO. Qualifiers - * PATEINT BEING DISCHARGED WITH ANY OF THE FOLLOWING DIAGNOSIS?: No Plan Discharge Plan: Follow-up with PCP as well as with cardiology and all the various consultants as previously arranged Time Spent: Greater than 30 Minutes
[2017-11-29] MEDS ORDERED: LISINOPRIL 10 MG TABLET PO SCH (10:00)
== END 2017-11-28 16:48 | disposition home or self-care (01) | DRG 310 ==
LOC: ER 15:03 → OBSVTOIN 18:03 → EH 18:03 → 4N 19:00 → ICU 21:47 → 4S 11-28 06:15
PROVIDERS: ADMIT Family Medicine; ATTEND Family Medicine
DX: R00.1 Bradycardia, unspecified (principal); R55 Syncope and collapse; E11.9 Type 2 diabetes mellitus without complications; I10 Essential (primary) hypertension; E87.6 Hypokalemia; Z79.84 Long term (current) use of oral hypoglycemic drugs; Z79.82 Long term (current) use of aspirin; Z79.899 Other long term (current) drug therapy
CPT/HCPCS: 36415; 70450; 70551; 71045; 80048; 80053; 80307; 81001; 82550; 82553; 82803; 83605; 83735; 84443; 84484; 85025; 85027; 85610; 87040; 87086; 93005; 93010; 93306; 93880; 96361; 96374; 99285; J1650; J2405; J3490; J7030

== ENCOUNTER → 2019-05-22 | Outpatient (CLI) | payer MEDICARE, BC ==
--- NOTE | 2019-05-22 14:34 | XCELERA REPORT ---
[address] [place] [facility] [place] [address] Lower Extremity Venous Evaluation Procedure: Color flow and duplex imaging of the veins of the left lower extremity as well as the right Common Femoral vein. Right Sided Venous Evaluation The right common femoral vein is fully compressible. Spontaneous and phasic flow is present in the right common femoral vein. Left Sided Venous Evaluation Normal vessel filling wall to wall, compression and augmentation as well as Colour flow down to the infrageniculate veins. Interpretation Summary No duplex evidence of DVT or obstruction in the left lower extremity nor in the right Common Femoral vein. Name: BRAVO MOHAN Age: 68 yrs Gender: Female : 1950 Patient Status: Outpatient Patient Location: Study Date: 05/22/2019 09:40 AM Reason For Study: LLE PAIN Ordering Physician: JINA ROMAN Performed By: Yrn Ronquillo : JINA ROMAN > Demetri Desai
== END ==
LOC: SP 09:32
PROVIDERS: ATTEND Orthopaedic Surgery Sports Medicine
DX: M79.662 Pain in left lower leg (principal)
CPT/HCPCS: 93971